=== PATIENT | male | born 1960 | race American Indian/Alaskan Native ===

== ENCOUNTER 2018-05-25 09:32 | Observation (INO) | payer MEDICAID ==
[2018-05-25] MEDS ORDERED: Sodium Chloride 0.9% 10 ML Syringe FLUSH PRN ×2 (10:52→12:13)
[2018-05-25] MEDS ORDERED: Aspirin 81 MG Tab.Chew PO ONE ×2 (10:53→14:04)
[2018-05-25] MEDS ORDERED: Nitroglycerin 0.4 MG Tab.SL SL PRN (10:54)
--- NOTE | 2018-05-25 12:17 | EDM.PDOC ---
ED HPI GENERAL MEDICAL PROBLEM - General Chief Complaint: Respiratory Problem Stated Complaint: DIFFICULTY BREATHING Time Seen by Provider: 05/25/18 12:02 Source of Information: Reports: Patient History Limitations: Reports: No Limitations - History of Present Illness INITIAL COMMENTS - FREE TEXT/NARRATIVE: 58-year-old male presents for evaluation and treatment shortness of breath. Patient is a very historian. Apparently he's had shortness of breath for the last 4 days. He states it is worse with exertion. When initially asked if he has any chest pain he responded with "I don't know ". he then admitted to having some pain throughout his entire chest. He states that he felt lightheaded but this was from anxiety attack he had on Friday. He reports he has been coughing and has had some productive sputum. No syncope. He did have a bloody nose last night. It sounds like he has a gash to his right leg which he' s had for several weeks from mowing the lawn. Open. This is causing some pain to his legs. No primary care provider. Patient has a history of PE blood clots. He is not currently on any blood thinners and has not been on any for several years. Reports it was several years ago that he had the blood clot to his lungs. Right Leg Pain Score (Numeric/FACES): 4 - Related Data Allergies Allergy/AdvReac Type Severity Reaction Status Date / Time wheat dust Allergy Other Uncoded 05/25/18 09:43 Home Meds: Home Meds Lisinopril 10 mg PO DAILY 05/25/18 [History] atorvaSTATin [Lipitor] 20 mg PO BEDTIME 05/25/18 [History] Enoxaparin [Lovenox] 120 mg SQ BID #60 syringe 05/28/18 [Rx] Folic Acid 1 mg PO DAILY #30 tablet 05/28/18 [Rx] Furosemide 20 mg PO ASDIRECTED #120 05/28/18 [Rx] Multivitamin [Multi-Day Vitamins] 1 each PO ASDIRECTED #30 tablet 05/28/18 [Rx] Spironolactone [Aldactone] 25 mg PO BID #60 tablet 05/28/18 [Rx] Thiamine [Vitamin B-1] 100 mg PO BEDTIME #30 tablet 05/28/18 [Rx] Ursodiol 300 mg PO DAILY #30 capsule 05/28/18 [Rx] predniSONE 40 mg PO WITHBREAKFAST #10 tablet 05/28/18 [Rx] Past Medical History HEENT History: Reports: Hard of Hearing, Impaired Vision Cardiovascular History: Reports: Blood Clots/VTE/DVT, High Cholesterol, Hypertension Respiratory History: Reports: SOB Genitourinary History: Reports: Chronic Renal Insuffiency, Prostate Disorder Musculoskeletal History: Reports: Arthritis Psychiatric History: Reports: Anxiety, Dementia Oncologic (Cancer) History: Reports: Prostate Dermatologic History: Reports: Cellulitis - Past Surgical History Other Respiratory Surgeries/Procedures: pulmonary emboli a couple years back on the Left. Male Surgical History: Reports: TURP-Transurethral Resection of Prostate Social & Family History - Family History Family Medical History: Noncontributory - Tobacco Use Smoking Status *Q: Never Smoker Second Hand Smoke Exposure: No - Caffeine Use Caffeine Use: Reports: Coffee - Recreational Drug Use Recreational Drug Use: Yes Drug Use in Last 12 Months: Yes Recreational Drug Type: Reports: Marijuana/Hashish Recreational Drug Use Frequency: Daily ED ROS GENERAL - Review of Systems Review Of Systems: See Below Respiratory: Reports: Shortness of Breath, Cough, Sputum Cardiovascular: Reports: Chest Pain, Lightheadedness. Denies: Syncope GI/Abdominal: Denies: Abdominal Pain, Nausea, Vomiting (x2 yesterday) Neurological: Denies: Syncope ED EXAM, GENERAL - Physical Exam Exam: See Below Exam Limited By: No Limitations General Appearance: Alert, WD/WN, No Apparent Distress, Obese Ears: Hearing Loss Nose: Normal Inspection Throat/Mouth: Normal Inspection, Normal Voice, No Airway Compromise Respiratory/Chest: No Respiratory Distress, Lungs Clear, Normal Breath Sounds Cardiovascular: Normal Peripheral Pulses, Regular Rate, Rhythm, No Murmur GI/Abdominal: Normal Bowel Sounds, Soft, Non-Tender Neurological: Alert, Confused, Slow to Respond Skin Exam: Warm, Dry, Normal Color EKG INTERPRETATION EKG Date: 05/25/18 Time: 11:00 Rhythm: Other (sinus bradcardia) Rate (Beats/Min): 57 [place]: Normal P-Wave: Present QRS: Normal ST-T: Normal QT: Normal Comparison: NA - No Prior EKG EKG Interpretation Comments: Sinus bradycardia at 57 bpm. First degree AV block, QTc moderately prolonged with a QTc of 472. Reviewed by myself and Dr. Catalan. Course - Vital Signs Last Recorded V/S: Last Vital Signs Temp 98.6 F 05/28/18 16:00 Pulse 62 05/28/18 16:00 Resp 20 05/28/18 16:00 BP 136/64 05/28/18 16:00 Pulse Ox 96 05/28/18 16:00 - Orders/Labs/Meds Labs: Laboratory Tests 05/25/18 05/25/18 05/25/18 Range/Units 12:30 12:30 12:30 WBC 4.36 (4.23-9.07) K/mm3 RBC 3.96 L (4.63-6.08) M/mm3 Hgb 13.9 (13.7-17.5) gm/L Hct 41.1 (40.1-51.0) % MCV 103.8 H (79.0-92.2) fl MCH 35.1 H (25.7-32.2) pg MCHC 33.8 (32.2-35.5) g/dl RDW Std Deviation 59.4 H (35.1-43.9) fL Plt Count 55 L (163-337) K/mm3 MPV 9.9 (9.4-12.3) fl Neutrophils % (Manual) 66 H (40-60) % Band Neutrophils % 0 (0-10) % Lymphocytes % (Manual) 31 (20-40) % Atypical Lymphs % 0 % Monocytes % (Manual) 2 (2-10) % Eosinophils % (Manual) 1 (0.8-7.0) % Basophils % (Manual) 0 L (0.2-1.2) Platelet Estimate See note Anisocytosis 1+ slight Macrocytosis 1+ slight RBC Morph Comment Not Reportable PT (9.5-12.1) SECONDS INR APTT (24-31) SECONDS D-Dimer, Quantitative 4.03 H (0.19-0.50) mg/L Sodium 134 L (136-145) mEq/L Potassium 4.0 (3.5-5.1) mEq/L Chloride 101 (98-107) mEq/L Carbon Dioxide 21 (21-32) mEq/L Anion Gap 16.0 H (5-15) BUN 6 L (7-18) mg/dL Creatinine 0.8 (0.7-1.3) mg/dL Est Cr Clr Drug Dosing 105.19 mL/min Estimated GFR (MDRD) > 60 (>60) mL/min BUN/Creatinine Ratio 7.5 L (14-18) Glucose 97 (74-106) mg/dL Calcium 8.4 L (8.5-10.1) mg/dL Magnesium (1.8-2.4) mg/dl Total Bilirubin 6.0 H (0.2-1.0) mg/dL Direct Bilirubin (0.0-0.2) mg/dl AST 97 H (15-37) U/L ALT 42 (16-63) U/L Alkaline Phosphatase 140 H (46-116) U/L Ammonia (11-32) umol/L CK-MB (CK-2) (0-3.6) ng/ml Troponin I 0.125 H* (0.00-0.056) ng/mL C-Reactive Protein 0.9 (<1.0) mg/dL NT-Pro-B Natriuret Pep (0-125) pg/mL Total Protein 7.6 (6.4-8.2) g/dl Albumin 2.8 L (3.4-5.0) g/dl Globulin 4.8 gm/dL Albumin/Globulin Ratio 0.6 L (1-2) Lipase (73-393) U/L PSA Screen (0.0-4.0) ng/mL TSH 3rd Generation (0.358-3.74) uIU/mL Ethyl Alcohol (0.00) gm% 05/25/18 05/25/18 05/25/18 Range/Units 12:30 12:30 12:30 WBC (4.23-9.07) K/mm3 RBC (4.63-6.08) M/mm3 Hgb (13.7-17.5) gm/L Hct (40.1-51.0) % MCV (79.0-92.2) fl MCH (25.7-32.2) pg MCHC (32.2-35.5) g/dl RDW Std Deviation (35.1-43.9) fL Plt Count (163-337) K/mm3 MPV (9.4-12.3) fl Neutrophils % (Manual) (40-60) % Band Neutrophils % (0-10) % Lymphocytes % (Manual) (20-40) % Atypical Lymphs % % Monocytes % (Manual) (2-10) % Eosinophils % (Manual) (0.8-7.0) % Basophils % (Manual) (0.2-1.2) Platelet Estimate Anisocytosis Macrocytosis RBC Morph Comment PT 16.0 H (9.5-12.1) SECONDS INR 1.48 APTT 34 H (24-31) SECONDS D-Dimer, Quantitative (0.19-0.50) mg/L Sodium (136-145) mEq/L Potassium (3.5-5.1) mEq/L Chloride (98-107) mEq/L Carbon Dioxide (21-32) mEq/L Anion Gap (5-15) BUN (7-18) mg/dL Creatinine (0.7-1.3) mg/dL Est Cr Clr Drug Dosing mL/min Estimated GFR (MDRD) (>60) mL/min BUN/Creatinine Ratio (14-18) Glucose (74-106) mg/dL Calcium (8.5-10.1) mg/dL Magnesium (1.8-2.4) mg/dl Total Bilirubin (0.2-1.0) mg/dL Direct Bilirubin (0.0-0.2) mg/dl AST (15-37) U/L ALT (16-63) U/L Alkaline Phosphatase (46-116) U/L Ammonia 32 (11-32) umol/L CK-MB (CK-2) 0.6 (0-3.6) ng/ml Troponin I (0.00-0.056) ng/mL C-Reactive Protein (<1.0) mg/dL NT-Pro-B Natriuret Pep (0-125) pg/mL Total Protein (6.4-8.2) g/dl Albumin (3.4-5.0) g/dl Globulin gm/dL Albumin/Globulin Ratio (1-2) Lipase (73-393) U/L PSA Screen (0.0-4.0) ng/mL TSH 3rd Generation (0.358-3.74) uIU/mL Ethyl Alcohol (0.00) gm% 05/25/18 05/25/18 05/25/18 Range/Units 12:30 12:30 14:50 WBC (4.23-9.07) K/mm3 RBC (4.63-6.08) M/mm3 Hgb (13.7-17.5) gm/L Hct (40.1-51.0) % MCV (79.0-92.2) fl MCH (25.7-32.2) pg MCHC (32.2-35.5) g/dl RDW Std Deviation (35.1-43.9) fL Plt Count (163-337) K/mm3 MPV (9.4-12.3) fl Neutrophils % (Manual) (40-60) % Band Neutrophils % (0-10) % Lymphocytes % (Manual) (20-40) % Atypical Lymphs % % Monocytes % (Manual) (2-10) % Eosinophils % (Manual) (0.8-7.0) % Basophils % (Manual) (0.2-1.2) Platelet Estimate Anisocytosis Macrocytosis RBC Morph Comment PT (9.5-12.1) SECONDS INR APTT (24-31) SECONDS D-Dimer, Quantitative (0.19-0.50) mg/L Sodium (136-145) mEq/L Potassium (3.5-5.1) mEq/L Chloride (98-107) mEq/L Carbon Dioxide (21-32) mEq/L Anion Gap (5-15) BUN (7-18) mg/dL Creatinine (0.7-1.3) mg/dL Est Cr Clr Drug Dosing mL/min Estimated GFR (MDRD) (>60) mL/min BUN/Creatinine Ratio (14-18) Glucose (74-106) mg/dL Calcium (8.5-10.1) mg/dL Magnesium (1.8-2.4) mg/dl Total Bilirubin (0.2-1.0) mg/dL Direct Bilirubin (0.0-0.2) mg/dl AST (15-37) U/L ALT (16-63) U/L Alkaline Phosphatase (46-116) U/L Ammonia (11-32) umol/L CK-MB (CK-2) (0-3.6) ng/ml Troponin I 0.118 H* (0.00-0.056) ng/mL C-Reactive Protein (<1.0) mg/dL NT-Pro-B Natriuret Pep 253 H (0-125) pg/mL Total Protein (6.4-8.2) g/dl Albumin (3.4-5.0) g/dl Globulin gm/dL Albumin/Globulin Ratio (1-2) Lipase (73-393) U/L PSA Screen (0.0-4.0) ng/mL TSH 3rd Generation (0.358-3.74) uIU/mL Ethyl Alcohol 0.00 (0.00) gm% 05/25/18 05/25/18 05/25/18 Range/Units 14:50 14:50 14:50 WBC (4.23-9.07) K/mm3 RBC (4.63-6.08) M/mm3 Hgb (13.7-17.5) gm/L Hct (40.1-51.0) % MCV (79.0-92.2) fl MCH (25.7-32.2) pg MCHC (32.2-35.5) g/dl RDW Std Deviation (35.1-43.9) fL Plt Count (163-337) K/mm3 MPV (9.4-12.3) fl Neutrophils % (Manual) (40-60) % Band Neutrophils % (0-10) % Lymphocytes % (Manual) (20-40) % Atypical Lymphs % % Monocytes % (Manual) (2-10) % Eosinophils % (Manual) (0.8-7.0) % Basophils % (Manual) (0.2-1.2) Platelet Estimate Anisocytosis Macrocytosis RBC Morph Comment PT (9.5-12.1) SECONDS INR APTT (24-31) SECONDS D-Dimer, Quantitative (0.19-0.50) mg/L Sodium (136-145) mEq/L Potassium (3.5-5.1) mEq/L Chloride (98-107) mEq/L Carbon Dioxide (21-32) mEq/L Anion Gap (5-15) BUN (7-18) mg/dL Creatinine (0.7-1.3) mg/dL Est Cr Clr Drug Dosing mL/min Estimated GFR (MDRD) (>60) mL/min BUN/Creatinine Ratio (14-18) Glucose (74-106) mg/dL Calcium (8.5-10.1) mg/dL Magnesium 2.0 (1.8-2.4) mg/dl Total Bilirubin (0.2-1.0) mg/dL Direct Bilirubin 2.10 H (0.0-0.2) mg/dl AST (15-37) U/L ALT (16-63) U/L Alkaline Phosphatase (46-116) U/L Ammonia (11-32) umol/L CK-MB (CK-2) (0-3.6) ng/ml Troponin I (0.00-0.056) ng/mL C-Reactive Protein (<1.0) mg/dL NT-Pro-B Natriuret Pep (0-125) pg/mL Total Protein (6.4-8.2) g/dl Albumin (3.4-5.0) g/dl Globulin gm/dL Albumin/Globulin Ratio (1-2) Lipase 243 (73-393) U/L PSA Screen (0.0-4.0) ng/mL TSH 3rd Generation 1.425 (0.358-3.74) uIU/mL Ethyl Alcohol (0.00) gm% 05/25/18 Range/Units 14:56 WBC (4.23-9.07) K/mm3 RBC (4.63-6.08) M/mm3 Hgb (13.7-17.5) gm/L Hct (40.1-51.0) % MCV (79.0-92.2) fl MCH (25.7-32.2) pg MCHC (32.2-35.5) g/dl RDW Std Deviation (35.1-43.9) fL Plt Count (163-337) K/mm3 MPV (9.4-12.3) fl Neutrophils % (Manual) (40-60) % Band Neutrophils % (0-10) % Lymphocytes % (Manual) (20-40) % Atypical Lymphs % % Monocytes % (Manual) (2-10) % Eosinophils % (Manual) (0.8-7.0) % Basophils % (Manual) (0.2-1.2) Platelet Estimate Anisocytosis Macrocytosis RBC Morph Comment PT (9.5-12.1) SECONDS INR APTT (24-31) SECONDS D-Dimer, Quantitative (0.19-0.50) mg/L Sodium (136-145) mEq/L Potassium (3.5-5.1) mEq/L Chloride (98-107) mEq/L Carbon Dioxide (21-32) mEq/L Anion Gap (5-15) BUN (7-18) mg/dL Creatinine (0.7-1.3) mg/dL Est Cr Clr Drug Dosing mL/min Estimated GFR (MDRD) (>60) mL/min BUN/Creatinine Ratio (14-18) Glucose (74-106) mg/dL Calcium (8.5-10.1) mg/dL Magnesium (1.8-2.4) mg/dl Total Bilirubin (0.2-1.0) mg/dL Direct Bilirubin (0.0-0.2) mg/dl AST (15-37) U/L ALT (16-63) U/L Alkaline Phosphatase (46-116) U/L Ammonia (11-32) umol/L CK-MB (CK-2) (0-3.6) ng/ml Troponin I (0.00-0.056) ng/mL C-Reactive Protein (<1.0) mg/dL NT-Pro-B Natriuret Pep (0-125) pg/mL Total Protein (6.4-8.2) g/dl Albumin (3.4-5.0) g/dl Globulin gm/dL Albumin/Globulin Ratio (1-2) Lipase (73-393) U/L PSA Screen < 0.1 (0.0-4.0) ng/mL TSH 3rd Generation (0.358-3.74) uIU/mL Ethyl Alcohol (0.00) gm% Meds: Medications Discontinued Medications Generic Name Dose Route Start Last Admin Trade Name Bolaq PRN Reason Stop Dose Admin Acetaminophen 650 mg 05/25/18 20:13 Tylenol PO Q4H PRN Pain (Mild 1-3)/fever Apixaban 2.5 mg 05/26/18 21:00 05/28/18 09:12 Eliquis PO 2.5 mg BID MARK Administration Aspirin 324 mg 05/25/18 10:53 05/25/18 12:34 Aspirin PO 05/25/18 10:54 Not Given ONETIME ONE Aspirin 324 mg 05/25/18 14:04 05/25/18 14:50 Aspirin PO 05/25/18 14:05 324 mg ONETIME ONE Administration Diphenhydramine HCl 50 mg 05/25/18 15:58 05/25/18 16:43 Benadryl IVPUSH 05/25/18 15:59 Not Given ONETIME ONE Enoxaparin Sodium 120 mg 05/25/18 20:34 05/25/18 21:42 Lovenox SUBCUT 05/25/18 20:35 Not Given ONETIME ONE Folic Acid 1 mg 05/26/18 09:00 05/28/18 09:13 Folic Acid PO 1 mg DAILY MARK Administration Furosemide 20 mg 05/26/18 09:00 05/26/18 10:15 Lasix PO 20 mg DAILY MARK Administration Furosemide 40 mg 05/27/18 09:00 05/28/18 09:13 Lasix PO 40 mg DAILY MARK Administration Haloperidol Lactate 5 mg 05/25/18 15:58 05/25/18 16:43 Haldol IM 05/25/18 15:59 Not Given ONETIME ONE Hydralazine HCl 20 mg 05/26/18 12:27 Apresoline IVPUSH Q4H PRN Hypertension Hydromorphone HCl 0.5 mg 05/25/18 15:58 05/25/18 16:43 Dilaudid IVPUSH 05/25/18 15:59 Not Given ONETIME ONE Sodium Chloride 100 mls @ 60 mls/hr 05/25/18 13:45 05/25/18 13:54 Normal Saline IV 60 mls/hr ASDIRECTED MARK Administration Sodium Chloride 1,000 mls @ 100 mls/hr 05/25/18 14:15 Normal Saline IV ASDIRECTED MARK Sodium Chloride 1,000 mls @ 125 mls/hr 05/25/18 20:45 05/27/18 12:16 Normal Saline IV 125 mls/hr ASDIRECTED MARK Administration Iopamidol 100 ml 05/25/18 13:39 05/25/18 13:53 Isovue-370 (76%) IVPUSH 05/25/18 13:40 100 ml ONETIME ONE Administration Iopamidol 100 ml 05/25/18 13:42 05/25/18 15:27 Isovue-370 (76%) IVPUSH 05/25/18 13:43 Not Given ONETIME ONE Iopamidol 125 ml 05/25/18 17:12 05/25/18 17:26 Isovue-300 (61%) IVPUSH 05/25/18 17:13 150 ml ONETIME ONE Administration Lisinopril 10 mg 05/25/18 21:30 05/28/18 09:14 Prinivil PO 10 mg DAILY MARK Administration Lorazepam 2 mg 05/26/18 12:27 Ativan IVPUSH Q4H PRN Seizures Magnesium Sulfate 1 dose 05/26/18 12:30 Pharmacy To Dose - Magnesium Replacement .XX ASDIRECTED MARK Metoprolol Tartrate 5 mg 05/26/18 12:27 Lopressor IVPUSH Q4H PRN Tachycardia Morphine Sulfate 2 mg 05/25/18 20:13 05/26/18 04:00 Morphine IVPUSH 05/26/18 20:16 2 mg Q2H PRN Administration Pain (severe 7-10) Multivitamins 1 each 05/26/18 21:00 05/27/18 20:17 Thera PO 1 each BEDTIME MARK Administration Atorvastatin 20 Mg 20 mg 05/25/18 21:45 05/27/18 20:18 TabOwn Med PO 20 mg BEDTIME MARK Administration Ondansetron HCl 4 mg 05/26/18 04:13 Zofran IVPUSH Q4H PRN Nausea/Vomiting Ursodiol 250 Mg Tab 0 each 05/26/18 21:00 05/26/18 20:36 PO 1 each BEDTIME MARK Administration Phytonadione 10 mg 05/26/18 19:00 05/28/18 09:25 Aquamephyton SUBCUT 05/28/18 09:01 10 mg DAILY MARK Administration Potassium Chloride 1 dose 05/26/18 12:30 Pharmacy To Dose - Potassium Replacement .XX ASDIRECTED MARK Prednisone 40 mg 05/27/18 07:00 05/28/18 06:33 Prednisone PO 40 mg WITHBREAKFAST MARK Administration Regadenoson 0.4 mg 05/26/18 06:49 05/26/18 07:49 Lexiscan IVPUSH 05/26/18 06:50 0.4 mg ONETIME ONE Administration Sodium Chloride 10 ml 05/25/18 12:13 05/25/18 12:34 Saline Flush FLUSH 10 ml ASDIRECTED PRN Administration Keep Vein Open Sodium Chloride 10 ml 05/25/18 13:39 05/25/18 13:54 Saline Flush FLUSH 09/10/18 13:40 10 ml ONETIME ONE Administration Spironolactone 25 mg 05/26/18 21:00 05/28/18 09:11 Aldactone PO 25 mg BID MARK Administration Thiamine HCl 100 mg 05/26/18 21:00 05/27/18 20:17 Vitamin B-1 PO 100 mg BEDTIME MARK Administration Ursodiol 250 mg 05/27/18 12:00 05/28/18 09:15 Candelaria 250 PO 250 mg BID MARK Administration - Radiology Interpretation Free Text/Narrative:: Chest: Two views of the chest were obtained. Comparison: No previous chest x-ray. Slight pleural thickening is seen within the right lateral costophrenic angle which is likely chronic. Embolization coils are seen within the left upper abdomen. Heart size is normal. Tortuous thoracic aorta is seen. No acute parenchymal change is seen. Bony structures appear within normal limits for the patient's age. Slight scoliosis is incidentally noted. Impression: 1. Incidental findings. Nothing acute is appreciated. CT chest Technique: Multiple axial sections were obtained through the chest. Intravenous contrast was utilized. Study performed as a pulmonary angiogram protocol. Pulmonary arteries are not optimally opacified as a pulmonary angiogram study. Findings: No filling defects seen within the main or segmental branches. Smaller subsegmental pulmonary emboli could easily be missed. Extensive coronary artery calcification is seen. No pericardial thickening is seen. Fatty infiltration noted within the liver. 6.5 cm cyst is noted within the left kidney. Multiple metallic density seen within the upper abdomen. Mediastinum and hilar regions show no adenopathy. No axillary adenopathy is seen. Lungs are clear without acute parenchymal change. No pleural effusions are seen. Bone window settings show no acute osseous abnormality. Impression: 1. Less than optimal opacification of pulmonary arteries. No filling defects are seen within the main or segmental branches. Smaller subsegmental pulmonary emboli could be missed. 2. Other incidental findings as noted above. Nothing acute is seen on CT study of the chest. CT abdomen and pelvis Technique: Multiple axial sections were obtained from above the dome of the diaphragm inferiorly through the pubic symphysis. Intravenous contrast was utilized. Oral contrast has been given. Findings: Liver is irregular in its contrast appearance as well as being slightly nodular having a cirrhotic appearance. Spleen appears within normal limits. Embolization type metallic densities are seen within the spleen and next to the spleen. Several metallic densities are seen within portion of the right lobe of the liver and next to the liver. Vague low density area is seen next to the gallbladder presumably due to slight focal fatty sparing. Adrenal glands show no nodule. Pancreas is normal. Gallbladder contains no calcified gallstones. Cyst noted within the left kidney. Kidneys show symmetric contrast enhancement. Delayed images shows contrast within the distal ureter and within the bladder. Bladder appears thick walled but is not well distended. Aorta shows atherosclerotic calcification which continues into the iliac vessels. No aneurysm is seen. No retroperitoneal adenopathy is seen. Small amount of fluid is seen off the inferior liver with some hazy mesenteric densities being seen which most likely are chronic. Small amount of fluid is also seen within the pelvis. Right sided abdominal hernia is noted. No bowel incarceration is seen within this hernia. Degenerative change is noted within the spine. Impression: 1. Findings of cirrhosis within the liver. Probable focal fatty sparing next to the gallbladder. 2. Small amount of ascites. 3. Right abdominal wall hernia with no findings of bowel incarceration. 4. Other incidental findings as noted above. - Re-Assessments/Exams Free Text/Narrative Re-Assessment/Exam: 05/25/18 19:02 I reviewed the labs, imaging and ekg with the patient. Reports his shortness of breath has improved without intervention. I have several concerns. He is a very poor historian and seems to have multiple chronic medical conditions of which he knows very little. Of concern is his elevated d dimer, elevated trop and elevated bilirubin. He reports a cardiac history and problems with his liver but can not elaborate much more. Reports a history of alcohol abuse, does not know or will not share how much alcohol he consumes. I am recommending admission. Patient is open to admission for additional testing including possibly a stress test, echo and ultrasounds of his legs and liver. I have discussed the case with Dr. Granado. Recommended CT of the abdomen for further evaluation of the elevated bili. Accepts for observation admission for elevated d dimer, elevated trop, elevated bilirubin, h/o etoh abuse and shortness of breath. Departure - Departure Time of Disposition: 19:00 Disposition: Refer to Observation Condition: Fair Clinical Impression: Elevated bilirubin, Elevated d-dimer, Elevated troponin, SOB (shortness of breath), Thrombocytopenia Laceration of right lower leg Qualifiers: Encounter type: subsequent encounter Qualified Code(s): S81.811D - Laceration without foreign body, right lower leg, subsequent encounter - Discharge Information *PRESCRIPTION DRUG MONITORING PROGRAM REVIEWED*: No *COPY OF PRESCRIPTION DRUG MONITORING REPORT IN PATIENT ELODIA: No
--- NOTE | 2018-05-25 12:55 | CR ---
Chest: Two views of the chest were obtained. Comparison: No previous chest x-ray. Slight pleural thickening is seen within the right lateral costophrenic angle which is likely chronic. Embolization coils are seen within the left upper abdomen. Heart size is normal. Tortuous thoracic aorta is seen. No acute parenchymal change is seen. Bony structures appear within normal limits for the patient's age. Slight scoliosis is incidentally noted. Impression: 1. Incidental findings. Nothing acute is appreciated. Diagnostic code #2
[2018-05-25] MEDS ORDERED: Iopamidol 755 Mg/ML 100 ML Bottle IVPUSH ONE ×2 (13:39→13:42)
[2018-05-25] MEDS ORDERED: Sodium Chloride 0.9% 10 ML Syringe FLUSH ONE (13:39)
[2018-05-25] MEDS ORDERED: Sodium Chloride 0.9% 100 ML IV SCH (13:45)
[2018-05-25] MEDS ORDERED: Sodium Chloride 0.9% 1,000 ML IV SCH (14:15)
--- NOTE | 2018-05-25 14:34 | CT ---
CT chest Technique: Multiple axial sections were obtained through the chest. Intravenous contrast was utilized. Study performed as a pulmonary angiogram protocol. Pulmonary arteries are not optimally opacified as a pulmonary angiogram study. Findings: No filling defects seen within the main or segmental branches. Smaller subsegmental pulmonary emboli could easily be missed. Extensive coronary artery calcification is seen. No pericardial thickening is seen. Fatty infiltration noted within the liver. 6.5 cm cyst is noted within the left kidney. Multiple metallic density seen within the upper abdomen. Mediastinum and hilar regions show no adenopathy. No axillary adenopathy is seen. Lungs are clear without acute parenchymal change. No pleural effusions are seen. Bone window settings show no acute osseous abnormality. Impression: 1. Less than optimal opacification of pulmonary arteries. No filling defects are seen within the main or segmental branches. Smaller subsegmental pulmonary emboli could be missed. 2. Other incidental findings as noted above. Nothing acute is seen on CT study of the chest. Diagnostic code #2
[2018-05-25] MEDS ORDERED: diphenhydrAMINE 50 MG/ML SDV IVPUSH ONE (15:58)
[2018-05-25] MEDS ORDERED: Haloperidol Lactate 5 MG/ML SDV IM ONE (15:58)
[2018-05-25] MEDS ORDERED: HYDROmorphone 0.5 MG/0.5 ML SYRINGE IVPUSH ONE (15:58)
[2018-05-25] MEDS ORDERED: Iopamidol 612 MG/ML 150 ML Bottle IVPUSH ONE (17:12)
--- NOTE | 2018-05-25 17:49 | CT ---
CT abdomen and pelvis Technique: Multiple axial sections were obtained from above the dome of the diaphragm inferiorly through the pubic symphysis. Intravenous contrast was utilized. Oral contrast has been given. Findings: Liver is irregular in its contrast appearance as well as being slightly nodular having a cirrhotic appearance. Spleen appears within normal limits. Embolization type metallic densities are seen within the spleen and next to the spleen. Several metallic densities are seen within portion of the right lobe of the liver and next to the liver. Vague low density area is seen next to the gallbladder presumably due to slight focal fatty sparing. Adrenal glands show no nodule. Pancreas is normal. Gallbladder contains no calcified gallstones. Cyst noted within the left kidney. Kidneys show symmetric contrast enhancement. Delayed images shows contrast within the distal ureter and within the bladder. Bladder appears thick walled but is not well distended. Aorta shows atherosclerotic calcification which continues into the iliac vessels. No aneurysm is seen. No retroperitoneal adenopathy is seen. Small amount of fluid is seen off the inferior liver with some hazy mesenteric densities being seen which most likely are chronic. Small amount of fluid is also seen within the pelvis. Right sided abdominal hernia is noted. No bowel incarceration is seen within this hernia. Degenerative change is noted within the spine. Impression: 1. Findings of cirrhosis within the liver. Probable focal fatty sparing next to the gallbladder. 2. Small amount of ascites. 3. Right abdominal wall hernia with no findings of bowel incarceration. 4. Other incidental findings as noted above. Diagnostic code #3
[2018-05-25] MEDS ORDERED: Acetaminophen 325 MG Tab PO PRN (20:13)
[2018-05-25] MEDS ORDERED: Morphine 2 MG/ML Syringe IVPUSH PRN (20:13)
[2018-05-25] MEDS ORDERED: Enoxaparin 120 MG/0.8 ML Syringe SUBCUT ONE (20:34)
--- NOTE | 2018-05-25 20:52 | PCM.HP ---
H&P History of Present Illness - General Date of Service: 05/25/18 Admit Problem/Dx: Admission Diagnosis/Problem Admission Diagnosis/Problem Chest pain Source of Information: Patient, Provider History Limitations: Reports: Altered Mental Status (Poor historian; Questionable baseline) - History of Present Illness Initial Comments - Free Text/Narative: HPI: This is a 58 yo male with past medical hx/o HTN, HLD, CHF, h/o prostate CA who comes in for possible hepatic encephalopathy, SOB, elevated troponin, elevated D -dimer and elevated bilirubin. He is not a good historian and it is difficult to obtain history. He states he did have some "heartburn" yesterday and had difficulty sleeping last night due to SOB and cough. He denies any fever, chills , headache, nausea, vomiting, diarrhea, or GI/ complaints. His initial workup in the ED showed a CBC remarkable for RBC 3.96, MCV 103.8, MCH 35.1, RDW 59.4, Plt 55, Neut 66%. His coagulation study shows PT 16, INR 1.48, APTT 34, D-Dimer elevated at 4.03. His chemistry is remarkable for Na 134 , Anion Gap 16, BUN 6, Ca 8.4, Total Bilirubin 6, Direct Bilirubin 2.10, AST 97 , Alk Phos 140, BNP 253, Albumin 2.8. EtOH 0. Chest X-ray shows nothing acute. CT angiogram shows nothing acute. Troponin elevated at 0.125 and 0.118. CKMB negative. EKG unremarkable. Abdominal CT shows liver cirrhosis, small amt of ascites and right abdominal wall hernia. He is subsequently admitted to the medical floor for observation. He is a full code. His PCP is unknown as he states "I see everyone" at [facility] in [place]. Right Leg Pain Score (Numeric/FACES): 4 - Related Data Allergies/Adverse Reactions: Allergies Allergy/AdvReac Type Severity Reaction Status Date / Time wheat dust Allergy Other Uncoded 05/25/18 09:43 Home Medications: Home Meds Folic Acid 1 mg PO DAILY 05/25/18 [History] Furosemide 20 mg PO DAILY 05/25/18 [History] Lisinopril 10 mg PO DAILY 05/25/18 [History] atorvaSTATin [Lipitor] 20 mg PO BEDTIME 05/25/18 [History] Past Medical History HEENT History: Reports: Hard of Hearing, Impaired Vision Other HEENT History: especially at night, poor dentition Cardiovascular History: Reports: Blood Clots/VTE/DVT, High Cholesterol, Hypertension Respiratory History: Reports: PE, SOB Gastrointestinal History: Reports: Hemorrhoids Genitourinary History: Reports: Chronic Renal Insuffiency, Prostate Disorder Musculoskeletal History: Reports: Arthritis Neurological History: Reports: None Psychiatric History: Reports: Anxiety, Dementia Endocrine/Metabolic History: Reports: None Immunologic History: Reports: None Oncologic (Cancer) History: Reports: Prostate Dermatologic History: Reports: Cellulitis - Infectious Disease History Infectious Disease History: Reports: None - Past Surgical History HEENT Surgical History: Reports: None Cardiovascular Surgical History: Reports: None Respiratory Surgical History: Reports: Other (See Below) Other Respiratory Surgeries/Procedures: "removal of blood clot in lung"; pulmonary emboli a couple years back on the Left. GI Surgical History: Reports: Colonoscopy Male Surgical History: Reports: TURP-Transurethral Resection of Prostate Other Male Surgeries/Procedures: bladder retention, patient reports blood in urine about a month ago and history of catheter placement with irrigation. Neurological Surgical History: Reports: None Musculoskeletal Surgical History: Reports: Arthroscopic Procedure Other Musculoskeletal Surgeries/Procedures:: Right knee Social & Family History - Family History Family Medical History: Noncontributory - Tobacco Use Smoking Status *Q: Never Smoker Years of Tobacco use: 1 Packs/Tins Daily: 0.2 Used Tobacco, but Quit: Yes Month/Year Tobacco Last Used: 40 Tobacco Use Comment: today Second Hand Smoke Exposure: No - Caffeine Use Caffeine Use: Reports: Coffee - Alcohol Use Days Per Week of Alcohol Use: 2 Number of Drinks Per Day: 3 Total Drinks Per Week: 6 Date of Last Drink: 04/28/18 - Recreational Drug Use Recreational Drug Use: Yes Drug Use in Last 12 Months: Yes Recreational Drug Type: Reports: Marijuana/Hashish Recreational Drug Use Frequency: Daily H&P Review of Systems - Review of Systems: Review Of Systems: See Below General: Reports: No Symptoms. Denies: Fever, Chills HEENT: Reports: No Symptoms Pulmonary: Reports: Shortness of Breath (with exertion), Wheezing (when supine) , Cough. Denies: Pleuritic Chest Pain, Sputum Cardiovascular: Reports: Orthopnea, Edema, Blood Pressure Problem, Other ( heartburn). Denies: Chest Pain Gastrointestinal: Reports: Distension. Denies: Abdominal Pain, Bloody Stool, Diarrhea, Nausea, Vomiting Genitourinary: Reports: No Symptoms Musculoskeletal: Reports: Leg Pain (has old laceration to right leg), Joint Pain ("twisted right knee"). Denies: Joint Swelling Skin: Reports: Wound (laceration to right calf, about 3"- 4") Psychiatric: Reports: Confusion (has a difficult time answering/understanding questions) Neurological: Reports: Confusion (has a difficult time answering/understanding questions) Hematologic/Lymphatic: Reports: No Symptoms Immunologic: Reports: No Symptoms Exam - Exam Exam: See Below - Vital Signs Vital Signs: Last Vital Signs Temp 98.8 F 05/25/18 09:47 Pulse 61 05/25/18 09:47 Resp 22 H 05/25/18 09:47 BP 138/75 05/25/18 09:47 Pulse Ox 99 05/25/18 09:47 Weight: 276 lb - Exam Quality Assessment: DVT Prophylaxis. No: Supplemental Oxygen General: Alert, Oriented (seems confused/slow when trying to answer questions), Cooperative, Mild Distress HEENT: PERRLA, Hearing Intact, Mucosa Moist & [place], Nares Patent, Normal Nasal Septum, Posterior Pharynx Clear, Conjunctiva Clear, EOMI, EACs Clear, TMs Clear Neck: Supple, Trachea Midline, 2 Lungs: Clear to Auscultation, Normal Respiratory Effort Cardiovascular: Regular Rate, Regular Rhythm GI/Abdominal Exam: Normal Bowel Sounds, Soft, Non-Tender, No Organomegaly, No Mass, Pelvis Stable, Distended (hyper-ressonate to percussion). No: Rebound (Male) Exam: Deferred Rectal (Males) Exam: Deferred Back Exam: Normal Inspection, Full Range of Motion, NT Extremities: Normal Range of Motion, Non-Tender, Normal Capillary Refill, Pedal Edema (R side 2+ pitting), Leg Pain (TTP near laceration), Increased Warmth ( Right leg near laceration). No: Gage's Sign Peripheral Pulses: 2+: Posterior Tibial (R), Dorsalis Pedis (R), 3+: Posterior Tibial (L), Dorsalis Pedis (L) Skin: Warm, Dry, Wound (3-4" laceration on the posterior right lower extremity) Neurological: Cranial Nerves Intact (grossly) Neuro Extensive - Mental Status: Alert, Oriented x3, Normal Mood/Affect. No: Normal Cognition (seems confused and has a hard time answering questions) - Patient Data Lab Results Last 24 hrs: Laboratory Results - last 24 hr 05/25/18 05/25/18 05/25/18 Range/Units 12:30 12:30 12:30 WBC 4.36 (4.23-9.07) K/mm3 RBC 3.96 L (4.63-6.08) M/mm3 Hgb 13.9 (13.7-17.5) gm/L Hct 41.1 (40.1-51.0) % MCV 103.8 H (79.0-92.2) fl MCH 35.1 H (25.7-32.2) pg MCHC 33.8 (32.2-35.5) g/dl RDW Std Deviation 59.4 H (35.1-43.9) fL Plt Count 55 L (163-337) K/mm3 MPV 9.9 (9.4-12.3) fl Neutrophils % (Manual) 66 H (40-60) % Band Neutrophils % 0 (0-10) % Lymphocytes % (Manual) 31 (20-40) % Atypical Lymphs % 0 % Monocytes % (Manual) 2 (2-10) % Eosinophils % (Manual) 1 (0.8-7.0) % Basophils % (Manual) 0 L (0.2-1.2) Platelet Estimate See note Anisocytosis 1+ slight Macrocytosis 1+ slight RBC Morph Comment Not Reportable PT (9.5-12.1) SECONDS INR APTT (24-31) SECONDS D-Dimer, Quantitative 4.03 H (0.19-0.50) mg/L Sodium 134 L (136-145) mEq/L Potassium 4.0 (3.5-5.1) mEq/L Chloride 101 (98-107) mEq/L Carbon Dioxide 21 (21-32) mEq/L Anion Gap 16.0 H (5-15) BUN 6 L (7-18) mg/dL Creatinine 0.8 (0.7-1.3) mg/dL Est Cr Clr Drug Dosing 105.19 mL/min Estimated GFR (MDRD) > 60 (>60) mL/min BUN/Creatinine Ratio 7.5 L (14-18) Glucose 97 (74-106) mg/dL Calcium 8.4 L (8.5-10.1) mg/dL Magnesium (1.8-2.4) mg/dl Total Bilirubin 6.0 H (0.2-1.0) mg/dL Direct Bilirubin (0.0-0.2) mg/dl AST 97 H (15-37) U/L ALT 42 (16-63) U/L Alkaline Phosphatase 140 H (46-116) U/L Ammonia (11-32) umol/L CK-MB (CK-2) (0-3.6) ng/ml Troponin I 0.125 H* (0.00-0.056) ng/mL C-Reactive Protein 0.9 (<1.0) mg/dL NT-Pro-B Natriuret Pep (0-125) pg/mL Total Protein 7.6 (6.4-8.2) g/dl Albumin 2.8 L (3.4-5.0) g/dl Globulin 4.8 gm/dL Albumin/Globulin Ratio 0.6 L (1-2) Lipase (73-393) U/L TSH 3rd Generation (0.358-3.74) uIU/mL Ethyl Alcohol (0.00) gm% 05/25/18 05/25/18 05/25/18 Range/Units 12:30 12:30 12:30 WBC (4.23-9.07) K/mm3 RBC (4.63-6.08) M/mm3 Hgb (13.7-17.5) gm/L Hct (40.1-51.0) % MCV (79.0-92.2) fl MCH (25.7-32.2) pg MCHC (32.2-35.5) g/dl RDW Std Deviation (35.1-43.9) fL Plt Count (163-337) K/mm3 MPV (9.4-12.3) fl Neutrophils % (Manual) (40-60) % Band Neutrophils % (0-10) % Lymphocytes % (Manual) (20-40) % Atypical Lymphs % % Monocytes % (Manual) (2-10) % Eosinophils % (Manual) (0.8-7.0) % Basophils % (Manual) (0.2-1.2) Platelet Estimate Anisocytosis Macrocytosis RBC Morph Comment PT 16.0 H (9.5-12.1) SECONDS INR 1.48 APTT 34 H (24-31) SECONDS D-Dimer, Quantitative (0.19-0.50) mg/L Sodium (136-145) mEq/L Potassium (3.5-5.1) mEq/L Chloride (98-107) mEq/L Carbon Dioxide (21-32) mEq/L Anion Gap (5-15) BUN (7-18) mg/dL Creatinine (0.7-1.3) mg/dL Est Cr Clr Drug Dosing mL/min Estimated GFR (MDRD) (>60) mL/min BUN/Creatinine Ratio (14-18) Glucose (74-106) mg/dL Calcium (8.5-10.1) mg/dL Magnesium (1.8-2.4) mg/dl Total Bilirubin (0.2-1.0) mg/dL Direct Bilirubin (0.0-0.2) mg/dl AST (15-37) U/L ALT (16-63) U/L Alkaline Phosphatase (46-116) U/L Ammonia 32 (11-32) umol/L CK-MB (CK-2) 0.6 (0-3.6) ng/ml Troponin I (0.00-0.056) ng/mL C-Reactive Protein (<1.0) mg/dL NT-Pro-B Natriuret Pep (0-125) pg/mL Total Protein (6.4-8.2) g/dl Albumin (3.4-5.0) g/dl Globulin gm/dL Albumin/Globulin Ratio (1-2) Lipase (73-393) U/L TSH 3rd Generation (0.358-3.74) uIU/mL Ethyl Alcohol (0.00) gm% 05/25/18 05/25/18 05/25/18 Range/Units 12:30 12:30 14:50 WBC (4.23-9.07) K/mm3 RBC (4.63-6.08) M/mm3 Hgb (13.7-17.5) gm/L Hct (40.1-51.0) % MCV (79.0-92.2) fl MCH (25.7-32.2) pg MCHC (32.2-35.5) g/dl RDW Std Deviation (35.1-43.9) fL Plt Count (163-337) K/mm3 MPV (9.4-12.3) fl Neutrophils % (Manual) (40-60) % Band Neutrophils % (0-10) % Lymphocytes % (Manual) (20-40) % Atypical Lymphs % % Monocytes % (Manual) (2-10) % Eosinophils % (Manual) (0.8-7.0) % Basophils % (Manual) (0.2-1.2) Platelet Estimate Anisocytosis Macrocytosis RBC Morph Comment PT (9.5-12.1) SECONDS INR APTT (24-31) SECONDS D-Dimer, Quantitative (0.19-0.50) mg/L Sodium (136-145) mEq/L Potassium (3.5-5.1) mEq/L Chloride (98-107) mEq/L Carbon Dioxide (21-32) mEq/L Anion Gap (5-15) BUN (7-18) mg/dL Creatinine (0.7-1.3) mg/dL Est Cr Clr Drug Dosing mL/min Estimated GFR (MDRD) (>60) mL/min BUN/Creatinine Ratio (14-18) Glucose (74-106) mg/dL Calcium (8.5-10.1) mg/dL Magnesium (1.8-2.4) mg/dl Total Bilirubin (0.2-1.0) mg/dL Direct Bilirubin (0.0-0.2) mg/dl AST (15-37) U/L ALT (16-63) U/L Alkaline Phosphatase (46-116) U/L Ammonia (11-32) umol/L CK-MB (CK-2) (0-3.6) ng/ml Troponin I 0.118 H* (0.00-0.056) ng/mL C-Reactive Protein (<1.0) mg/dL NT-Pro-B Natriuret Pep 253 H (0-125) pg/mL Total Protein (6.4-8.2) g/dl Albumin (3.4-5.0) g/dl Globulin gm/dL Albumin/Globulin Ratio (1-2) Lipase (73-393) U/L TSH 3rd Generation (0.358-3.74) uIU/mL Ethyl Alcohol 0.00 (0.00) gm% 05/25/18 05/25/18 05/25/18 Range/Units 14:50 14:50 14:50 WBC (4.23-9.07) K/mm3 RBC (4.63-6.08) M/mm3 Hgb (13.7-17.5) gm/L Hct (40.1-51.0) % MCV (79.0-92.2) fl MCH (25.7-32.2) pg MCHC (32.2-35.5) g/dl RDW Std Deviation (35.1-43.9) fL Plt Count (163-337) K/mm3 MPV (9.4-12.3) fl Neutrophils % (Manual) (40-60) % Band Neutrophils % (0-10) % Lymphocytes % (Manual) (20-40) % Atypical Lymphs % % Monocytes % (Manual) (2-10) % Eosinophils % (Manual) (0.8-7.0) % Basophils % (Manual) (0.2-1.2) Platelet Estimate Anisocytosis Macrocytosis RBC Morph Comment PT (9.5-12.1) SECONDS INR APTT (24-31) SECONDS D-Dimer, Quantitative (0.19-0.50) mg/L Sodium (136-145) mEq/L Potassium (3.5-5.1) mEq/L Chloride (98-107) mEq/L Carbon Dioxide (21-32) mEq/L Anion Gap (5-15) BUN (7-18) mg/dL Creatinine (0.7-1.3) mg/dL Est Cr Clr Drug Dosing mL/min Estimated GFR (MDRD) (>60) mL/min BUN/Creatinine Ratio (14-18) Glucose (74-106) mg/dL Calcium (8.5-10.1) mg/dL Magnesium 2.0 (1.8-2.4) mg/dl Total Bilirubin (0.2-1.0) mg/dL Direct Bilirubin 2.10 H (0.0-0.2) mg/dl AST (15-37) U/L ALT (16-63) U/L Alkaline Phosphatase (46-116) U/L Ammonia (11-32) umol/L CK-MB (CK-2) (0-3.6) ng/ml Troponin I (0.00-0.056) ng/mL C-Reactive Protein (<1.0) mg/dL NT-Pro-B Natriuret Pep (0-125) pg/mL Total Protein (6.4-8.2) g/dl Albumin (3.4-5.0) g/dl Globulin gm/dL Albumin/Globulin Ratio (1-2) Lipase 243 (73-393) U/L TSH 3rd Generation 1.425 (0.358-3.74) uIU/mL Ethyl Alcohol (0.00) gm% Result Diagrams: 05/25/18 12:30 05/25/18 12:30 - Problem List (1) HTN (hypertension) SNOMED Code(s): 90147220 ICD Code: I10 - ESSENTIAL (PRIMARY) HYPERTENSION Status: Chronic Priority : Medium Current Visit: Yes Qualifiers: Hypertension type: unspecified Qualified Code(s): I10 - Essential (primary ) hypertension (2) HLD (hyperlipidemia) SNOMED Code(s): 59563514 ICD Code: E78.5 - HYPERLIPIDEMIA, UNSPECIFIED Status: Chronic Priority: Medium Current Visit: Yes Qualifiers: Hyperlipidemia type: unspecified Qualified Code(s): E78.5 - Hyperlipidemia , unspecified (3) CHF (congestive heart failure) SNOMED Code(s): 98024540 ICD Code: I50.9 - HEART FAILURE, UNSPECIFIED Status: Chronic Priority: Medium Current Visit: Yes Qualifiers: Heart failure type: unspecified Heart failure chronicity: unspecified Qualified Code(s): I50.9 - Heart failure, unspecified (4) Thrombocytopenia SNOMED Code(s): 972132934 ICD Code: D69.6 - THROMBOCYTOPENIA, UNSPECIFIED Status: Acute Priority: Medium Current Visit: Yes (5) SOB (shortness of breath) SNOMED Code(s): 307601355 ICD Code: R06.02 - SHORTNESS OF BREATH Status: Acute Priority: High Current Visit: Yes (6) Elevated troponin SNOMED Code(s): 850676119, 466283061, 431825845 ICD Code: R74.8 - ABNORMAL LEVELS OF OTHER SERUM ENZYMES Status: Acute Priority: High Current Visit: Yes (7) Elevated d-dimer SNOMED Code(s): 478252473 ICD Code: R79.89 - OTHER SPECIFIED ABNORMAL FINDINGS OF BLOOD CHEMISTRY Status: Acute Priority: High Current Visit: Yes (8) Elevated bilirubin SNOMED Code(s): 359647958 ICD Code: R17 - UNSPECIFIED JAUNDICE Status: Acute Priority: High Current Visit: Yes (9) Laceration of right lower leg SNOMED Code(s): 360732541 ICD Code: S81.811A - LACERATION W/O FOREIGN BODY, RIGHT LOWER LEG, INIT ENCNTR Status: Acute Priority: Medium Current Visit: Yes Qualifiers: Encounter type: subsequent encounter Qualified Code(s): S81.811D - Laceration without foreign body, right lower leg, subsequent encounter (10) History of prostate cancer SNOMED Code(s): 116167917 ICD Code: Z85.46 - PERSONAL HISTORY OF MALIGNANT NEOPLASM OF PROSTATE Status: Chronic Priority: Medium Current Visit: Yes (11) Hepatic encephalopathy SNOMED Code(s): 41836724 ICD Code: K72.90 - HEPATIC FAILURE, UNSPECIFIED WITHOUT COMA Status: Acute Priority: High Current Visit: Yes Problem List Initiated/Reviewed/Updated: Yes Orders Last 24hrs: Active Orders 24 hr Category Date Time Status Patient Status [ADT] Routine ADT 05/25/18 19:01 Active Cardiac Monitoring [RC] . DIRECTED Care 05/25/18 10:50 Inactive EKG Documentation Completion [RC] AM Care 05/26/18 05:11 Ordered EKG Documentation Completion [RC] ASDIRECTED Care 05/25/18 12:13 Active EKG Documentation Completion [RC] STAT Care 05/25/18 10:51 Inactive May Shower [RC] ASDIRECTED Care 05/25/18 20:13 Ordered Oxygen Therapy [RC] PRN Care 05/25/18 20:13 Ordered Oxygen Therapy, ED [RC] ASDIRECTED Care 05/25/18 10:52 Inactive Pulse Oximetry [RC] PRN Care 05/25/18 20:14 Ordered Up ad Antwon [RC] ASDIRECTED Care 05/25/18 20:13 Ordered VTE/DVT Education [RC] PER UNIT ROUTINE Care 05/25/18 20:13 Ordered Consult to Pulmonary Rehabilitation [CONS] Routine Cons 05/25/18 20:33 Ordered Heart Healthy Diet [DIET] Diet 05/26/18 Lunch Ordered Nothing per Oral After Midnight Diet [DIET] Diet 05/25/18 Dinner Ordered Abdomen Comp [US] Routine Exams 05/26/18 09:00 Ordered Chest 2V [CR] AM Exams 05/27/18 05:11 Ordered Echo Comp wo Cont [US] Routine Exams 05/25/18 20:28 Ordered Venous Doppler Lwr Ext Bi [US] Routine Exams 05/26/18 09:00 Ordered C-REACTIVE PROTEIN [CHEM] AM Lab 05/26/18 05:11 Ordered C-REACTIVE PROTEIN [CHEM] AM Lab 05/27/18 05:11 Ordered C-REACTIVE PROTEIN [CHEM] AM Lab 05/28/18 05:11 Ordered C-REACTIVE PROTEIN [CHEM] AM Lab 05/29/18 05:11 Ordered C-REACTIVE PROTEIN [CHEM] AM Lab 05/30/18 05:11 Ordered CBC WITH AUTO DIFF [HEME] AM Lab 05/26/18 05:11 Ordered CBC WITH AUTO DIFF [HEME] AM Lab 05/27/18 05:11 Ordered CBC WITH AUTO DIFF [HEME] AM Lab 05/28/18 05:11 Ordered CBC WITH AUTO DIFF [HEME] AM Lab 05/29/18 05:11 Ordered CBC WITH AUTO DIFF [HEME] AM Lab 05/30/18 05:11 Ordered COMPREHENSIVE METABOLIC PN,CMP [CHEM] AM Lab 05/26/18 05:11 Ordered COMPREHENSIVE METABOLIC PN,CMP [CHEM] AM Lab 05/27/18 05:11 Ordered COMPREHENSIVE METABOLIC PN,CMP [CHEM] AM Lab 05/28/18 05:11 Ordered COMPREHENSIVE METABOLIC PN,CMP [CHEM] AM Lab 05/29/18 05:11 Ordered COMPREHENSIVE METABOLIC PN,CMP [CHEM] AM Lab 05/30/18 05:11 Ordered DRUG SCREEN, URINE [URCHEM] Stat Lab 05/25/18 16:37 Ordered HEPATITIS PANEL (4) [REF] Routine Lab 05/25/18 20:30 Ordered MAGNESIUM [CHEM] AM Lab 05/26/18 05:11 Ordered MAGNESIUM [CHEM] AM Lab 05/27/18 05:11 Ordered MAGNESIUM [CHEM] AM Lab 05/28/18 05:11 Ordered MAGNESIUM [CHEM] AM Lab 05/29/18 05:11 Ordered MAGNESIUM [CHEM] AM Lab 05/30/18 05:11 Ordered MYCOPLASMA PNEUMONIAE IGM AB [CHEM] Stat Lab 05/25/18 20:45 Ordered PSA SCREEN [CHEM] Routine Lab 05/25/18 20:29 Ordered STREP PNEUMONIAE ANTIGEN [MREF] Routine Lab 05/25/18 20:45 Ordered TROPONIN I [CHEM] AM Lab 05/26/18 05:11 Ordered TROPONIN I [CHEM] Stat Lab 05/25/18 20:13 Ordered UA W/MICROSCOPIC [URIN] Stat Lab 05/25/18 16:37 Ordered Acetaminophen [Tylenol] Med 05/25/18 20:13 Ordered 650 mg PO Q4H PRN Enoxaparin [Lovenox] Med 05/25/18 20:34 Once 120 mg SUBCUT ONETIME ONE Morphine Med 05/25/18 20:13 Ordered 2 mg IVPUSH Q2H PRN Sodium Chloride 0.9% [Normal Saline] 1,000 ml Med 05/25/18 14:15 Active IV ASDIRECTED Sodium Chloride 0.9% [Normal Saline] 1,000 ml Med 05/25/18 20:45 Ordered IV ASDIRECTED Sodium Chloride 0.9% [Normal Saline] 100 ml Med 05/25/18 13:45 Active IV ASDIRECTED Sodium Chloride 0.9% [Saline Flush] Med 05/25/18 12:13 Active 10 ml FLUSH ASDIRECTED PRN Peripheral IV Insertion Adult [OM.PC] Routine Oth 05/25/18 12:13 Ordered Resuscitation Status Routine Resus Stat 05/25/18 20:30 Ordered EKG 12 Lead [EK] AM Ther 05/26/18 05:11 Ordered EKG 12 Lead [EK] Stat Ther 05/25/18 12:13 Ordered Lexiscan [EKG Stress NM Adenosine] [EK] Routine Ther 05/26/18 05:11 Ordered Medication Orders Acetaminophen (Tylenol) 650 mg PO Q4H PRN PRN Reason: Pain (Mild 1-3)/fever Enoxaparin Sodium (Lovenox) 120 mg SUBCUT ONETIME ONE Stop: 05/25/18 20:35 Sodium Chloride (Normal Saline) 100 mls @ 60 mls/hr IV ASDIRECTED [facility] Last Admin: 05/25/18 13:54 Dose: 60 mls/hr Sodium Chloride (Normal Saline) 1,000 mls @ 100 mls/hr IV ASDIRECTED [facility] Sodium Chloride (Normal Saline) 1,000 mls @ 125 mls/hr IV ASDIRECTED [facility] Morphine Sulfate (Morphine) 2 mg IVPUSH Q2H PRN PRN Reason: Pain (severe 7-10) Stop: 05/26/18 20:16 Sodium Chloride (Saline Flush) 10 ml FLUSH ASDIRECTED PRN PRN Reason: Keep Vein Open Last Admin: 05/25/18 12:34 Dose: 10 ml Assessment/Plan Comment:: I/P: Acute: Hepatic Encephalopathy NOS * Poor historian, seems confused/has difficulty when asked questions * CT Abdomen: * 1. Findings of cirrhosis within the liver. Probable focal fatty sparing next to the gallbladder. * 2. Small amount of ascites. * 3. Right abdominal wall hernia with no findings of bowel incarceration. * Ammonia 32 * Hepatitis Panel pending * EtOH negative in ED * Drug screen pending Elevated Troponin * Cannot exclude Type I NH, looking for other sources * 0.125, 0.118, 0.117 * SOB with exertion, "heart burn" yesterday * Repeat troponin Q6H * Lexiscan in AM Elevated D-Dimer * 4.03 * Angiogram--> no acute abnormal findings * There is some edema and tenderness to RLE, although he did recently injure the knee and has a laceration healing * Venous doppler LE * Hold Lovenox d/t thrombocytopenia Elevated Bilirubin * Total Bilirubin 6, Direct 2.1 * Abd CT: nothing acute * Abd U/S pending Thrombocytopenia * Most likely 2/2 hepatic disease * Plt 55 * No anticoagulation for now SOB and Cough * Mycoplasma and Strep pneumo pending * CXR: no acute findings * Repeat CXR in 2 days * Afebrile, nonproductive * O2 98% on RA Laceration to RLE * 3-4" * Mildly increased warmth and edema to the lower leg * No purulent discharge from wound * Monitor Chronic: HTN HLD * Lipid panel pending CHF, unknown EF * 2+ pitting edema of R leg only * SOB, orthopnea * BNP 253 * Takes Lasix at home--> continue * ECHO in AM h/o Prostate CA * PSA <0.1 Plan: Transferred to Observation today He remains stable IVF Other orders as indicated above Routine AM labs Heart Healthy Diet DVT Prophylaxis: none; thrombocytopenia GI Prophylaxis: Protonix Ambulate ad antwon Code Status: Full code; PCP: Unknown, states "I see everyone" at [facility] in [place]; need to establish local PCP
[2018-05-25] MEDS: Sodium Chloride 0.9% 1,000 ML IV SCH (21:46)
[2018-05-25] MEDS: ATORVASTATIN 20 MG PO SCH (21:51)
[2018-05-25] MEDS: LISINOPRIL 10 MG PO SCH (21:51)
[2018-05-26] MEDS ORDERED: Ondansetron 4 MG/2 ML SDV IVPUSH PRN (04:13)
[2018-05-26] MEDS: Sodium Chloride 0.9% 1,000 ML IV SCH ×2 (05:24→19:02)
[2018-05-26] MEDS ORDERED: Furosemide 20 MG Tab**OWN MED PO SCH (09:00)
--- NOTE | 2018-05-26 09:49 | US ---
Abdominal ultrasound: Multiple real-time images of the abdomen were obtained. Comparison: Previous abdominal and pelvic CT study of 05/25/18. Technologist's note: Very difficult scan due to habitus Liver is very irregular in its echo pattern. Hypoechoic area is seen next to the gallbladder most likely due to focal fatty sparing. Gallbladder shows no shadowing gallstones. No gallbladder wall thickening or biliary duct dilatation is seen. Cyst is noted within the left kidney measuring 6.3 cm. Kidneys otherwise show no hydronephrosis or mass. Right kidney length is 11.9 cm and left kidney length is 12.3 cm. Spleen appears within normal limits in size. Aorta and pancreas are poorly seen. Small amount of ascites is seen. Impression: 1. Very irregular echo pattern within the liver most likely due to fatty infiltration and change from cirrhosis. Slight focal fatty sparing is seen next to the gallbladder. 2. Left renal cyst. 3. Small amount of ascites. 4. Aorta and pancreas are poorly seen. Other portions of the abdominal ultrasound show no discrete abnormality. Diagnostic code #3
[2018-05-26] MEDS: Folic Acid 1 MG Tab**OWN MED PO SCH (10:15)
[2018-05-26] MEDS: LISINOPRIL 10 MG PO SCH (10:15)
--- NOTE | 2018-05-26 11:20 | PCM.PRNOTE ---
- Free Text/Narrative Note: Date of service: 05/26/18 Procedure: Regadenoson (Lexiscan) stress test Ordering provider: Dr. Crystal Granado/Abbi Kurtz PA-C Indication: SOB with exertion Baseline EKG: Sinus Rhythm at 63 bpm. Prolonged QT segment with T-wave inversion in V1. The patient received Regadenoson (Lexiscan) 0.4 mg IV and a nuclear agent using standard protocol. The patient was seated for the procedure. Lexiscan test: Heart rate: 103 bpm; Blood pressure: 120/69 mm Hg; Oxygenation: 98%. EKG changes of ischemia during stress test or in recovery: None Arrhythmias: None Adverse effects of Lexiscan: Nausea,vomiting, lightheaded and briefly short of breath. All relieving spontaneously resolving at completion of test. Test terminated due to: end of protocol Impression: 1. Negative Lexiscan stress test ECG for ischemia. 2. Nuclear images pending and will be reported separately per Radiologist.
--- NOTE | 2018-05-26 11:47 | US ---
Bilateral lower extremity deep venous ultrasound: Duplex and color flow imaging was obtained of the right and left common femoral, proximal greater saphenous, superficial femoral, popliteal, posterior tibial and peroneal veins. Comparison: No prior venous exam. Findings: Normal phasic flow, augmentation and compression is seen. Impression: 1. No evidence of deep venous thrombosis is seen within the right or left lower extremities. Diagnostic code #1
[2018-05-26] MEDS ORDERED: hydrALAZINE 20 MG/ML SDV IVPUSH PRN (12:27)
[2018-05-26] MEDS ORDERED: Metoprolol Tartrate 5 MG/5 ML SDV IVPUSH PRN (12:27)
[2018-05-26] MEDS ORDERED: LORazepam 2 MG/ML SDV IVPUSH PRN (12:27)
--- NOTE | 2018-05-26 13:53 | NM ---
Cardiolite cardiac exam with Lexiscan Technique: I have data stating patient was stressed utilizing Lexiscan protocol. Stress dose of technetium 99m Cardiolite was 11.4 mCi. Rest dose was 31.1 mCi. SPECT imaging was obtained in 3 planes for both portions of the study. Study was also gated. Low dose chest CT performed to allow for attenuation correction. Comparison: No prior cardiac imaging. Findings: Left ventricular cavity appears somewhat enlarged. Diminished density noted within the inferior wall which is similar between rest and stress portions of the study most likely due to diaphragmatic artifact. No reversible type change is seen. Ejection fraction is 62%. Slightly diminished wall thickening is seen within the inferior wall. Wall thickening is otherwise normal. Impression: 1. Diminished activity within the inferior wall as noted above most likely due to diaphragmatic artifact or less likely previous infarct. 2. Left ventricular cavity appears somewhat enlarged. 3. No findings of reversible ischemia are seen. Diagnostic code #3
--- NOTE | 2018-05-26 16:46 | PCM.PN ---
<Izzy Francis - Last Filed: 05/26/18 16:51> - General Info Date of Service: 05/26/18 Admission Dx/Problem (Free Text): Admission Diagnosis/Problem Admission Diagnosis/Problem Chest pain Functional Status: Reports: Pain Controlled, Tolerating Diet, Ambulating, Urinating - Review of Systems General: Reports: No Symptoms HEENT: Reports: No Symptoms Pulmonary: Reports: No Symptoms Cardiovascular: Reports: No Symptoms Gastrointestinal: Reports: Nausea, Vomiting Genitourinary: Reports: No Symptoms Musculoskeletal: Reports: No Symptoms Skin: Reports: No Symptoms Neurological: Reports: No Symptoms Psychiatric: Reports: No Symptoms Systems Review Comment:: Patient states he is doing well. Currently denies any pain. He reports nausea and vomiting earlier today. This has now resolved. Denies any other symptoms. - Patient Data Vitals - Most Recent: Last Vital Signs Temp 98.1 F 05/26/18 15:32 Pulse 57 L 05/26/18 15:32 Resp 18 05/26/18 15:32 BP 128/63 05/26/18 15:32 Pulse Ox 95 05/26/18 15:32 Weight - Most Recent: 124.001 kg I&O - Last 24 Hours: Intake & Output 05/26/18 05/26/18 05/26/18 06:59 14:59 22:59 Intake Total 850 698 Output Total 400 600 Balance 450 98 Lab Results Last 24 Hours: Laboratory Results - last 24 hr 05/25/18 05/25/18 05/25/18 Range/Units 14:50 14:50 14:56 WBC (4.23-9.07) K/mm3 RBC (4.63-6.08) M/mm3 Hgb (13.7-17.5) gm/L Hct (40.1-51.0) % MCV (79.0-92.2) fl MCH (25.7-32.2) pg MCHC (32.2-35.5) g/dl RDW Std Deviation (35.1-43.9) fL Plt Count (163-337) K/mm3 MPV (9.4-12.3) fl Neut % (Auto) (34.0-67.9) % Lymph % (Auto) (21.8-53.1) % [place] % (Auto) (5.3-12.2) % Eos % (Auto) (0.8-7.0) Baso % (Auto) (0.1-1.2) % Neut # (Auto) (1.78-5.38) K/mm3 Lymph # (Auto) (1.32-3.57) K/mm3 [place] # (Auto) (0.30-0.82) K/mm3 Eos # (Auto) (0.04-0.54) K/mm3 Baso # (Auto) (0.01-0.08) K/mm3 Manual Slide Review PT (9.5-12.1) SECONDS INR Sodium (136-145) mEq/L Potassium (3.5-5.1) mEq/L Chloride (98-107) mEq/L Carbon Dioxide (21-32) mEq/L Anion Gap (5-15) BUN (7-18) mg/dL Creatinine (0.7-1.3) mg/dL Est Cr Clr Drug Dosing mL/min Estimated GFR (MDRD) (>60) mL/min BUN/Creatinine Ratio (14-18) Glucose (74-106) mg/dL Calcium (8.5-10.1) mg/dL Magnesium (1.8-2.4) mg/dl Total Bilirubin (0.2-1.0) mg/dL Direct Bilirubin 2.10 H (0.0-0.2) mg/dl AST (15-37) U/L ALT (16-63) U/L Alkaline Phosphatase (46-116) U/L Troponin I (0.00-0.056) ng/mL C-Reactive Protein (<1.0) mg/dL Total Protein (6.4-8.2) g/dl Albumin (3.4-5.0) g/dl Globulin gm/dL Albumin/Globulin Ratio (1-2) Triglycerides (<150) mg/dL Cholesterol (<200) mg/dL LDL Cholesterol Direct (<100) mg/dL HDL Cholesterol (40-59) mg/dL PSA Screen < 0.1 (0.0-4.0) ng/mL TSH 3rd Generation 1.425 (0.358-3.74) uIU/mL Urine Color (Yellow) Urine Appearance (Clear) Urine pH (5.0-8.0) Ur Specific [place] (1.005-1.030) Urine Protein (Negative) Urine Glucose (UA) (Negative) Urine Ketones (Negative) Urine Occult Blood (Negative) Urine Nitrite (Negative) Urine Bilirubin (Negative) Urine Urobilinogen (0.2-1.0) Ur Leukocyte Esterase (Negative) Urine RBC (0-5) /hpf Urine WBC (0-5) /hpf Ur Epithelial Cells (0-5) /hpf Urine Bacteria (FEW) /hpf Urine Mucus (FEW) /hpf Urine Opiates Screen (NEGATIVE) Ur Buprenorphine Scrn (NEGATIVE) Ur Oxycodone Screen (NEGATIVE) Urine Methadone Screen (NEGATIVE) Ur Propoxyphene Screen (NEGATIVE) Ur Barbiturates Screen (NEGATIVE) Ur Tricyclics Screen (NEGATIVE) Ur Phencyclidine Scrn (NEGATIVE) Ur Amphetamine Screen (NEGATIVE) U Methamphetamines Scrn (NEGATIVE) U Benzodiazepines Scrn (NEGATIVE) U Cocaine Metab Screen (NEGATIVE) U Marijuana (THC) Screen (NEGATIVE) Mycoplasma pneumon IgM (NEGATIVE) 05/25/18 05/25/18 05/25/18 Range/Units 19:30 20:55 21:54 WBC (4.23-9.07) K/mm3 RBC (4.63-6.08) M/mm3 Hgb (13.7-17.5) gm/L Hct (40.1-51.0) % MCV (79.0-92.2) fl MCH (25.7-32.2) pg MCHC (32.2-35.5) g/dl RDW Std Deviation (35.1-43.9) fL Plt Count (163-337) K/mm3 MPV (9.4-12.3) fl Neut % (Auto) (34.0-67.9) % Lymph % (Auto) (21.8-53.1) % [place] % (Auto) (5.3-12.2) % Eos % (Auto) (0.8-7.0) Baso % (Auto) (0.1-1.2) % Neut # (Auto) (1.78-5.38) K/mm3 Lymph # (Auto) (1.32-3.57) K/mm3 [place] # (Auto) (0.30-0.82) K/mm3 Eos # (Auto) (0.04-0.54) K/mm3 Baso # (Auto) (0.01-0.08) K/mm3 Manual Slide Review PT (9.5-12.1) SECONDS INR Sodium (136-145) mEq/L Potassium (3.5-5.1) mEq/L Chloride (98-107) mEq/L Carbon Dioxide (21-32) mEq/L Anion Gap (5-15) BUN (7-18) mg/dL Creatinine (0.7-1.3) mg/dL Est Cr Clr Drug Dosing mL/min Estimated GFR (MDRD) (>60) mL/min BUN/Creatinine Ratio (14-18) Glucose (74-106) mg/dL Calcium (8.5-10.1) mg/dL Magnesium (1.8-2.4) mg/dl Total Bilirubin (0.2-1.0) mg/dL Direct Bilirubin (0.0-0.2) mg/dl AST (15-37) U/L ALT (16-63) U/L Alkaline Phosphatase (46-116) U/L Troponin I 0.117 H* (0.00-0.056) ng/mL C-Reactive Protein (<1.0) mg/dL Total Protein (6.4-8.2) g/dl Albumin (3.4-5.0) g/dl Globulin gm/dL Albumin/Globulin Ratio (1-2) Triglycerides (<150) mg/dL Cholesterol (<200) mg/dL LDL Cholesterol Direct (<100) mg/dL HDL Cholesterol (40-59) mg/dL PSA Screen (0.0-4.0) ng/mL TSH 3rd Generation (0.358-3.74) uIU/mL Urine Color Jeni H (Yellow) Urine Appearance Slt cloudy H (Clear) Urine pH 7.5 (5.0-8.0) Ur Specific [place] 1.015 (1.005-1.030) Urine Protein Negative (Negative) Urine Glucose (UA) Negative (Negative) Urine Ketones Negative (Negative) Urine Occult Blood Negative (Negative) Urine Nitrite Negative (Negative) Urine Bilirubin 1+ H (Negative) Urine Urobilinogen >=8.0 H (0.2-1.0) Ur Leukocyte Esterase Negative (Negative) Urine RBC 0-5 (0-5) /hpf Urine WBC 0-5 (0-5) /hpf Ur Epithelial Cells 0-5 (0-5) /hpf Urine Bacteria Moderate H (FEW) /hpf Urine Mucus Not seen (FEW) /hpf Urine Opiates Screen (NEGATIVE) Ur Buprenorphine Scrn (NEGATIVE) Ur Oxycodone Screen (NEGATIVE) Urine Methadone Screen (NEGATIVE) Ur Propoxyphene Screen (NEGATIVE) Ur Barbiturates Screen (NEGATIVE) Ur Tricyclics Screen (NEGATIVE) Ur Phencyclidine Scrn (NEGATIVE) Ur Amphetamine Screen (NEGATIVE) U Methamphetamines Scrn (NEGATIVE) U Benzodiazepines Scrn (NEGATIVE) U Cocaine Metab Screen (NEGATIVE) U Marijuana (THC) Screen (NEGATIVE) Mycoplasma pneumon IgM Negative (NEGATIVE) 05/25/18 05/26/18 05/26/18 Range/Units 21:54 03:02 03:02 WBC 4.45 (4.23-9.07) K/mm3 RBC 3.56 L (4.63-6.08) M/mm3 Hgb 12.7 L (13.7-17.5) gm/L Hct 37.0 L (40.1-51.0) % MCV 103.9 H (79.0-92.2) fl MCH 35.7 H (25.7-32.2) pg MCHC 34.3 (32.2-35.5) g/dl RDW Std Deviation 59.2 H (35.1-43.9) fL Plt Count 55 L (163-337) K/mm3 MPV 9.2 L (9.4-12.3) fl Neut % (Auto) 59.8 (34.0-67.9) % Lymph % (Auto) 22.2 (21.8-53.1) % [place] % (Auto) 14.4 H (5.3-12.2) % Eos % (Auto) 2.5 (0.8-7.0) Baso % (Auto) 0.9 (0.1-1.2) % Neut # (Auto) 2.66 (1.78-5.38) K/mm3 Lymph # (Auto) 0.99 L (1.32-3.57) K/mm3 [place] # (Auto) 0.64 (0.30-0.82) K/mm3 Eos # (Auto) 0.11 (0.04-0.54) K/mm3 Baso # (Auto) 0.04 (0.01-0.08) K/mm3 Manual Slide Review Abnormal smear PT (9.5-12.1) SECONDS INR Sodium 135 L (136-145) mEq/L Potassium 3.9 (3.5-5.1) mEq/L Chloride 104 (98-107) mEq/L Carbon Dioxide 20 L (21-32) mEq/L Anion Gap 14.9 (5-15) BUN 6 L (7-18) mg/dL Creatinine 0.8 (0.7-1.3) mg/dL Est Cr Clr Drug Dosing 105.19 mL/min Estimated GFR (MDRD) > 60 (>60) mL/min BUN/Creatinine Ratio 7.5 L (14-18) Glucose 97 (74-106) mg/dL Calcium 8.1 L (8.5-10.1) mg/dL Magnesium 1.8 (1.8-2.4) mg/dl Total Bilirubin 5.4 H (0.2-1.0) mg/dL Direct Bilirubin (0.0-0.2) mg/dl AST 74 H (15-37) U/L ALT 34 (16-63) U/L Alkaline Phosphatase 120 H (46-116) U/L Troponin I (0.00-0.056) ng/mL C-Reactive Protein 0.9 (<1.0) mg/dL Total Protein 6.8 (6.4-8.2) g/dl Albumin 2.5 L (3.4-5.0) g/dl Globulin 4.3 gm/dL Albumin/Globulin Ratio 0.6 L (1-2) Triglycerides 57 (<150) mg/dL Cholesterol 66 (<200) mg/dL LDL Cholesterol Direct 35 (<100) mg/dL HDL Cholesterol 36.0 L (40-59) mg/dL PSA Screen (0.0-4.0) ng/mL TSH 3rd Generation (0.358-3.74) uIU/mL Urine Color (Yellow) Urine Appearance (Clear) Urine pH (5.0-8.0) Ur Specific [place] (1.005-1.030) Urine Protein (Negative) Urine Glucose (UA) (Negative) Urine Ketones (Negative) Urine Occult Blood (Negative) Urine Nitrite (Negative) Urine Bilirubin (Negative) Urine Urobilinogen (0.2-1.0) Ur Leukocyte Esterase (Negative) Urine RBC (0-5) /hpf Urine WBC (0-5) /hpf Ur Epithelial Cells (0-5) /hpf Urine Bacteria (FEW) /hpf Urine Mucus (FEW) /hpf Urine Opiates Screen Negative (NEGATIVE) Ur Buprenorphine Scrn Negative (NEGATIVE) Ur Oxycodone Screen Negative (NEGATIVE) Urine Methadone Screen Negative (NEGATIVE) Ur Propoxyphene Screen Negative (NEGATIVE) Ur Barbiturates Screen Negative (NEGATIVE) Ur Tricyclics Screen Negative (NEGATIVE) Ur Phencyclidine Scrn Negative (NEGATIVE) Ur Amphetamine Screen Negative (NEGATIVE) U Methamphetamines Scrn Negative (NEGATIVE) U Benzodiazepines Scrn Negative (NEGATIVE) U Cocaine Metab Screen Negative (NEGATIVE) U Marijuana (THC) Screen Presumptive positive H (NEGATIVE) Mycoplasma pneumon IgM (NEGATIVE) 05/26/18 05/26/18 05/26/18 Range/Units 03:02 03:02 09:43 WBC (4.23-9.07) K/mm3 RBC (4.63-6.08) M/mm3 Hgb (13.7-17.5) gm/L Hct (40.1-51.0) % MCV (79.0-92.2) fl MCH (25.7-32.2) pg MCHC (32.2-35.5) g/dl RDW Std Deviation (35.1-43.9) fL Plt Count (163-337) K/mm3 MPV (9.4-12.3) fl Neut % (Auto) (34.0-67.9) % Lymph % (Auto) (21.8-53.1) % [place] % (Auto) (5.3-12.2) % Eos % (Auto) (0.8-7.0) Baso % (Auto) (0.1-1.2) % Neut # (Auto) (1.78-5.38) K/mm3 Lymph # (Auto) (1.32-3.57) K/mm3 [place] # (Auto) (0.30-0.82) K/mm3 Eos # (Auto) (0.04-0.54) K/mm3 Baso # (Auto) (0.01-0.08) K/mm3 Manual Slide Review PT 16.8 H (9.5-12.1) SECONDS INR 1.55 Sodium (136-145) mEq/L Potassium (3.5-5.1) mEq/L Chloride (98-107) mEq/L Carbon Dioxide (21-32) mEq/L Anion Gap (5-15) BUN (7-18) mg/dL Creatinine (0.7-1.3) mg/dL Est Cr Clr Drug Dosing mL/min Estimated GFR (MDRD) (>60) mL/min BUN/Creatinine Ratio (14-18) Glucose (74-106) mg/dL Calcium (8.5-10.1) mg/dL Magnesium (1.8-2.4) mg/dl Total Bilirubin (0.2-1.0) mg/dL Direct Bilirubin (0.0-0.2) mg/dl AST (15-37) U/L ALT (16-63) U/L Alkaline Phosphatase (46-116) U/L Troponin I 0.119 H* 0.108 H* (0.00-0.056) ng/mL C-Reactive Protein (<1.0) mg/dL Total Protein (6.4-8.2) g/dl Albumin (3.4-5.0) g/dl Globulin gm/dL Albumin/Globulin Ratio (1-2) Triglycerides (<150) mg/dL Cholesterol (<200) mg/dL LDL Cholesterol Direct (<100) mg/dL HDL Cholesterol (40-59) mg/dL PSA Screen (0.0-4.0) ng/mL TSH 3rd Generation (0.358-3.74) uIU/mL Urine Color (Yellow) Urine Appearance (Clear) Urine pH (5.0-8.0) Ur Specific [place] (1.005-1.030) Urine Protein (Negative) Urine Glucose (UA) (Negative) Urine Ketones (Negative) Urine Occult Blood (Negative) Urine Nitrite (Negative) Urine Bilirubin (Negative) Urine Urobilinogen (0.2-1.0) Ur Leukocyte Esterase (Negative) Urine RBC (0-5) /hpf Urine WBC (0-5) /hpf Ur Epithelial Cells (0-5) /hpf Urine Bacteria (FEW) /hpf Urine Mucus (FEW) /hpf Urine Opiates Screen (NEGATIVE) Ur Buprenorphine Scrn (NEGATIVE) Ur Oxycodone Screen (NEGATIVE) Urine Methadone Screen (NEGATIVE) Ur Propoxyphene Screen (NEGATIVE) Ur Barbiturates Screen (NEGATIVE) Ur Tricyclics Screen (NEGATIVE) Ur Phencyclidine Scrn (NEGATIVE) Ur Amphetamine Screen (NEGATIVE) U Methamphetamines Scrn (NEGATIVE) U Benzodiazepines Scrn (NEGATIVE) U Cocaine Metab Screen (NEGATIVE) U Marijuana (THC) Screen (NEGATIVE) Mycoplasma pneumon IgM (NEGATIVE) 05/26/18 Range/Units 15:30 WBC (4.23-9.07) K/mm3 RBC (4.63-6.08) M/mm3 Hgb (13.7-17.5) gm/L Hct (40.1-51.0) % MCV (79.0-92.2) fl MCH (25.7-32.2) pg MCHC (32.2-35.5) g/dl RDW Std Deviation (35.1-43.9) fL Plt Count (163-337) K/mm3 MPV (9.4-12.3) fl Neut % (Auto) (34.0-67.9) % Lymph % (Auto) (21.8-53.1) % [place] % (Auto) (5.3-12.2) % Eos % (Auto) (0.8-7.0) Baso % (Auto) (0.1-1.2) % Neut # (Auto) (1.78-5.38) K/mm3 Lymph # (Auto) (1.32-3.57) K/mm3 [place] # (Auto) (0.30-0.82) K/mm3 Eos # (Auto) (0.04-0.54) K/mm3 Baso # (Auto) (0.01-0.08) K/mm3 Manual Slide Review PT (9.5-12.1) SECONDS INR Sodium (136-145) mEq/L Potassium (3.5-5.1) mEq/L Chloride (98-107) mEq/L Carbon Dioxide (21-32) mEq/L Anion Gap (5-15) BUN (7-18) mg/dL Creatinine (0.7-1.3) mg/dL Est Cr Clr Drug Dosing mL/min Estimated GFR (MDRD) (>60) mL/min BUN/Creatinine Ratio (14-18) Glucose (74-106) mg/dL Calcium (8.5-10.1) mg/dL Magnesium (1.8-2.4) mg/dl Total Bilirubin (0.2-1.0) mg/dL Direct Bilirubin (0.0-0.2) mg/dl AST (15-37) U/L ALT (16-63) U/L Alkaline Phosphatase (46-116) U/L Troponin I 0.114 H* (0.00-0.056) ng/mL C-Reactive Protein (<1.0) mg/dL Total Protein (6.4-8.2) g/dl Albumin (3.4-5.0) g/dl Globulin gm/dL Albumin/Globulin Ratio (1-2) Triglycerides (<150) mg/dL Cholesterol (<200) mg/dL LDL Cholesterol Direct (<100) mg/dL HDL Cholesterol (40-59) mg/dL PSA Screen (0.0-4.0) ng/mL TSH 3rd Generation (0.358-3.74) uIU/mL Urine Color (Yellow) Urine Appearance (Clear) Urine pH (5.0-8.0) Ur Specific [place] (1.005-1.030) Urine Protein (Negative) Urine Glucose (UA) (Negative) Urine Ketones (Negative) Urine Occult Blood (Negative) Urine Nitrite (Negative) Urine Bilirubin (Negative) Urine Urobilinogen (0.2-1.0) Ur Leukocyte Esterase (Negative) Urine RBC (0-5) /hpf Urine WBC (0-5) /hpf Ur Epithelial Cells (0-5) /hpf Urine Bacteria (FEW) /hpf Urine Mucus (FEW) /hpf Urine Opiates Screen (NEGATIVE) Ur Buprenorphine Scrn (NEGATIVE) Ur Oxycodone Screen (NEGATIVE) Urine Methadone Screen (NEGATIVE) Ur Propoxyphene Screen (NEGATIVE) Ur Barbiturates Screen (NEGATIVE) Ur Tricyclics Screen (NEGATIVE) Ur Phencyclidine Scrn (NEGATIVE) Ur Amphetamine Screen (NEGATIVE) U Methamphetamines Scrn (NEGATIVE) U Benzodiazepines Scrn (NEGATIVE) U Cocaine Metab Screen (NEGATIVE) U Marijuana (THC) Screen (NEGATIVE) Mycoplasma pneumon IgM (NEGATIVE) Med Orders - Current: Current Medications Acetaminophen (Tylenol) 650 mg PO Q4H PRN PRN Reason: Pain (Mild 1-3)/fever Apixaban (Eliquis) 2.5 mg PO BID [facility] Folic Acid (Folic Acid) 1 mg PO DAILY [facility] Last Admin: 05/26/18 10:15 Dose: 1 mg Furosemide (Lasix) 40 mg PO DAILY [facility] Hydralazine HCl (Apresoline) 20 mg IVPUSH Q4H PRN PRN Reason: Hypertension Sodium Chloride (Normal Saline) 1,000 mls @ 125 mls/hr IV ASDIRECTED [facility] Last Admin: 05/26/18 05:24 Dose: 125 mls/hr Lisinopril (Prinivil) 10 mg PO DAILY [facility] Last Admin: 05/26/18 10:15 Dose: 10 mg Lorazepam (Ativan) 2 mg IVPUSH Q4H PRN PRN Reason: Seizures Magnesium Sulfate (Pharmacy To Dose - Magnesium Replacement) 1 dose .XX ASDIRECTED [facility] Metoprolol Tartrate (Lopressor) 5 mg IVPUSH Q4H PRN PRN Reason: Tachycardia Morphine Sulfate (Morphine) 2 mg IVPUSH Q2H PRN PRN Reason: Pain (severe 7-10) Stop: 05/26/18 20:16 Last Admin: 05/26/18 04:00 Dose: 2 mg Multivitamins (Thera) 1 each PO BEDTIME [facility] Atorvastatin 20 Mg (TabOwn Med) 20 mg PO BEDTIME [facility] Last Admin: 05/25/18 21:51 Dose: 20 mg Ondansetron HCl (Zofran) 4 mg IVPUSH Q4H PRN PRN Reason: Nausea/Vomiting Ursodiol 250 Mg Tab 0 each PO BEDTIME [facility] Potassium Chloride (Pharmacy To Dose - Potassium Replacement) 1 dose .XX ASDIRECTED [facility] Prednisone (Prednisone) 40 mg PO WITHBREAKFAST [facility] Sodium Chloride (Saline Flush) 10 ml FLUSH ASDIRECTED PRN PRN Reason: Keep Vein Open Last Admin: 05/25/18 12:34 Dose: 10 ml Spironolactone (Aldactone) 25 mg PO BID [facility] Thiamine HCl (Vitamin B-1) 100 mg PO BEDTIME [facility] Discontinued Medications Aspirin (Aspirin) 324 mg PO ONETIME ONE Stop: 05/25/18 10:54 Last Admin: 05/25/18 12:34 Dose: Not Given Aspirin (Aspirin) 324 mg PO ONETIME ONE Stop: 05/25/18 14:05 Last Admin: 05/25/18 14:50 Dose: 324 mg Diphenhydramine HCl (Benadryl) 50 mg IVPUSH ONETIME ONE Stop: 05/25/18 15:59 Last Admin: 05/25/18 16:43 Dose: Not Given Enoxaparin Sodium (Lovenox) 120 mg SUBCUT ONETIME ONE Stop: 05/25/18 20:35 Last Admin: 05/25/18 21:42 Dose: Not Given Furosemide (Lasix) 20 mg PO DAILY [facility] Last Admin: 05/26/18 10:15 Dose: 20 mg Haloperidol Lactate (Haldol) 5 mg IM ONETIME ONE Stop: 05/25/18 15:59 Last Admin: 05/25/18 16:43 Dose: Not Given Hydromorphone HCl (Dilaudid) 0.5 mg IVPUSH ONETIME ONE Stop: 05/25/18 15:59 Last Admin: 05/25/18 16:43 Dose: Not Given Sodium Chloride (Normal Saline) 100 mls @ 60 mls/hr IV ASDIRECTED [facility] Last Admin: 05/25/18 13:54 Dose: 60 mls/hr Sodium Chloride (Normal Saline) 1,000 mls @ 100 mls/hr IV ASDIRECTED [facility] Iopamidol (Isovue-370 (76%)) 100 ml IVPUSH ONETIME ONE Stop: 05/25/18 13:40 Last Admin: 05/25/18 13:53 Dose: 100 ml Iopamidol (Isovue-370 (76%)) 100 ml IVPUSH ONETIME ONE Stop: 05/25/18 13:43 Last Admin: 05/25/18 15:27 Dose: Not Given Iopamidol (Isovue-300 (61%)) 125 ml IVPUSH ONETIME ONE Stop: 05/25/18 17:13 Last Admin: 05/25/18 17:26 Dose: 150 ml Regadenoson (Lexiscan) 0.4 mg IVPUSH ONETIME ONE Stop: 05/26/18 06:50 Last Admin: 05/26/18 07:49 Dose: 0.4 mg Sodium Chloride (Saline Flush) 10 ml FLUSH ONETIME ONE Stop: 05/25/18 13:40 Last Admin: 05/25/18 13:54 Dose: 10 ml - Exam Quality Assessment: DVT Prophylaxis General: Cooperative, No Acute Distress HEENT: EOMI, Mucous Membr. Moist/[place] Neck: Supple, Trachea Midline Lungs: Clear to Auscultation, Normal Respiratory Effort Cardiovascular: Regular Rate, Regular Rhythm GI/Abdominal Exam: Normal Bowel Sounds, Non-Tender, Distended, Other (ascites; caput medusae) (Male) Exam: Deferred Back Exam: Normal Inspection Extremities: Normal Inspection, Normal Range of Motion, Pedal Edema, Other ( laceration right lower extremity) Peripheral Pulses: 2+: Radial (L), Radial (R), Posterior Tibial (L), Posterior Tibial (R) Skin: Warm, Dry, Intact Wound/Incisions: Other (open laceration right lower extremity, some oozing) Neurological: Other (confused) Psy/Mental Status: Alert, Normal Affect, Normal Mood Physical Findings Comments:: Patient is cooperative and in no apparent distress. He is confused and easily distracted throughout H&P. Abdomen is distended with ascites and caput medusae. There is a laceration on his right calf. Mild peripheral edema. No other abnormalities noted. - Problem List & Annotations (1) Cirrhosis SNOMED Code(s): 62411025 Code(s): K74.60 - UNSPECIFIED CIRRHOSIS OF LIVER Status: Acute Current Visit: Yes Qualifiers: Hepatic cirrhosis type: alcoholic cirrhosis (2) Elevated bilirubin SNOMED Code(s): 193954392 Code(s): R17 - UNSPECIFIED JAUNDICE Status: Acute Priority: High Current Visit: Yes (3) Elevated troponin SNOMED Code(s): 527008422, 954675996, 222315844 Code(s): R74.8 - ABNORMAL LEVELS OF OTHER SERUM ENZYMES Status: Acute Priority: High Current Visit: Yes - Plan Plan:: I/P: Acute: Cirrhosis * States he has previously been diagnosed with cirrhosis, likely alcohol-induced * History of alcoholism * EtOH negative on admission * Admits he is still drinking; amount unclear * Hepatitis panel pending * CT Abdomen: * 1. Findings of cirrhosis within the liver. Probable focal fatty sparing next to the gallbladder. * 2. Small amount of ascites. * 3. Right abdominal wall hernia with no findings of bowel incarceration * Maddrey's discriminate function for alcoholic hepatitis * 32.7 = poor prognosis * Patient may benefit from glucocortioid therapy - start prednisone * Meld score * 20 points * 19.6% 3 month mortality Altered mental status * Poor historian, seems confused/has difficulty when asked questions * Ammonia 32 - no hepatic encephalopathy * Drug screen presumptive positive for marijuana; all others negative * Likely due to elevated bilirubin Elevated Bilirubin, improving * Total Bilirubin 6 on admission --> now 5.4 * Abd CT: nothing acute * Abd U/S pending * Likely contributing to altered mental status Elevated Troponin, improving * 05/25 --> 0.125, 0.118, 0.117; 05/26 --> 0.119, 0.108, 0.114 * CKMB negative * Lexiscan negative * Likely due to renal insufficiency Elevated D-Dimer * 4.03 on admission * Angiogram--> no acute abnormal findings * Venous doppler LE * Mild edema in lower extremities * Hold Lovenox d/t thrombocytopenia - eliquis for DVT prophylaxis Thrombocytopenia * Most likely 2/2 hepatic disease * Plt 55 SOB and Cough * Mycoplasma negative; Strep pneumo pending * CXR: no acute findings * Repeat CXR in 1 day * Afebrile, nonproductive * O2 98% on RA Laceration to RLE * 3-4" * Mildly increased warmth and edema to the lower leg * No purulent discharge from wound * Monitor Chronic: HTN HLD * Lipid panel WNL CHF, unknown EF * 2+ pitting edema of R leg only * SOB, orthopnea * BNP 253 * Takes Lasix at home--> continue * ECHO done today h/o Prostate CA * PSA <0.1 Plan: Transferred to Observation today He remains stable IVF Other orders as indicated above Routine AM labs Heart Healthy Diet DVT Prophylaxis: none; thrombocytopenia GI Prophylaxis: Protonix Ambulate ad antwon Code Status: Full code; sister is POA PCP: Unknown, states "I see everyone" at [facility] in [place]; need to establish local PCP Izzy Francis, MS-3. Dr. Edwards has examined the patient and reviewed the note. <Rowena Edwards T - Last Filed: 05/26/18 18:54> - Review of Systems Systems Review Comment:: No overnight or acute issues. She has no chest or respiratory complaints. - Patient Data Vitals - Most Recent: Last Vital Signs Temp 36.7 C 05/26/18 15:32 Pulse 57 L 05/26/18 15:32 Resp 18 05/26/18 15:32 BP 128/63 05/26/18 15:32 Pulse Ox 95 05/26/18 15:32 I&O - Last 24 Hours: Intake & Output 05/26/18 05/26/18 05/26/18 06:59 14:59 22:59 Intake Total 850 818 Output Total 400 600 Balance 450 218 Lab Results Last 24 Hours: Laboratory Results - last 24 hr 05/25/18 05/25/18 05/25/18 Range/Units 14:50 14:56 19:30 WBC (4.23-9.07) K/mm3 RBC (4.63-6.08) M/mm3 Hgb (13.7-17.5) gm/L Hct (40.1-51.0) % MCV (79.0-92.2) fl MCH (25.7-32.2) pg MCHC (32.2-35.5) g/dl RDW Std Deviation (35.1-43.9) fL Plt Count (163-337) K/mm3 MPV (9.4-12.3) fl Neut % (Auto) (34.0-67.9) % Lymph % (Auto) (21.8-53.1) % [place] % (Auto) (5.3-12.2) % Eos % (Auto) (0.8-7.0) Baso % (Auto) (0.1-1.2) % Neut # (Auto) (1.78-5.38) K/mm3 Lymph # (Auto) (1.32-3.57) K/mm3 [place] # (Auto) (0.30-0.82) K/mm3 Eos # (Auto) (0.04-0.54) K/mm3 Baso # (Auto) (0.01-0.08) K/mm3 Manual Slide Review PT (9.5-12.1) SECONDS INR Sodium (136-145) mEq/L Potassium (3.5-5.1) mEq/L Chloride (98-107) mEq/L Carbon Dioxide (21-32) mEq/L Anion Gap (5-15) BUN (7-18) mg/dL Creatinine (0.7-1.3) mg/dL Est Cr Clr Drug Dosing mL/min Estimated GFR (MDRD) (>60) mL/min BUN/Creatinine Ratio (14-18) Glucose (74-106) mg/dL Calcium (8.5-10.1) mg/dL Magnesium (1.8-2.4) mg/dl Total Bilirubin (0.2-1.0) mg/dL AST (15-37) U/L ALT (16-63) U/L Alkaline Phosphatase (46-116) U/L Troponin I (0.00-0.056) ng/mL C-Reactive Protein (<1.0) mg/dL Total Protein (6.4-8.2) g/dl Albumin (3.4-5.0) g/dl Globulin gm/dL Albumin/Globulin Ratio (1-2) Triglycerides (<150) mg/dL Cholesterol (<200) mg/dL LDL Cholesterol Direct (<100) mg/dL HDL Cholesterol (40-59) mg/dL PSA Screen < 0.1 (0.0-4.0) ng/mL TSH 3rd Generation 1.425 (0.358-3.74) uIU/mL Urine Color (Yellow) Urine Appearance (Clear) Urine pH (5.0-8.0) Ur Specific [place] (1.005-1.030) Urine Protein (Negative) Urine Glucose (UA) (Negative) Urine Ketones (Negative) Urine Occult Blood (Negative) Urine Nitrite (Negative) Urine Bilirubin (Negative) Urine Urobilinogen (0.2-1.0) Ur Leukocyte Esterase (Negative) Urine RBC (0-5) /hpf Urine WBC (0-5) /hpf Ur Epithelial Cells (0-5) /hpf Urine Bacteria (FEW) /hpf Urine Mucus (FEW) /hpf Urine Opiates Screen (NEGATIVE) Ur Buprenorphine Scrn (NEGATIVE) Ur Oxycodone Screen (NEGATIVE) Urine Methadone Screen (NEGATIVE) Ur Propoxyphene Screen (NEGATIVE) Ur Barbiturates Screen (NEGATIVE) Ur Tricyclics Screen (NEGATIVE) Ur Phencyclidine Scrn (NEGATIVE) Ur Amphetamine Screen (NEGATIVE) U Methamphetamines Scrn (NEGATIVE) U Benzodiazepines Scrn (NEGATIVE) U Cocaine Metab Screen (NEGATIVE) U Marijuana (THC) Screen (NEGATIVE) Mycoplasma pneumon IgM Negative (NEGATIVE) 05/25/18 05/25/18 05/25/18 Range/Units 20:55 21:54 21:54 WBC (4.23-9.07) K/mm3 RBC (4.63-6.08) M/mm3 Hgb (13.7-17.5) gm/L Hct (40.1-51.0) % MCV (79.0-92.2) fl MCH (25.7-32.2) pg MCHC (32.2-35.5) g/dl RDW Std Deviation (35.1-43.9) fL Plt Count (163-337) K/mm3 MPV (9.4-12.3) fl Neut % (Auto) (34.0-67.9) % Lymph % (Auto) (21.8-53.1) % [place] % (Auto) (5.3-12.2) % Eos % (Auto) (0.8-7.0) Baso % (Auto) (0.1-1.2) % Neut # (Auto) (1.78-5.38) K/mm3 Lymph # (Auto) (1.32-3.57) K/mm3 [place] # (Auto) (0.30-0.82) K/mm3 Eos # (Auto) (0.04-0.54) K/mm3 Baso # (Auto) (0.01-0.08) K/mm3 Manual Slide Review PT (9.5-12.1) SECONDS INR Sodium (136-145) mEq/L Potassium (3.5-5.1) mEq/L Chloride (98-107) mEq/L Carbon Dioxide (21-32) mEq/L Anion Gap (5-15) BUN (7-18) mg/dL Creatinine (0.7-1.3) mg/dL Est Cr Clr Drug Dosing mL/min Estimated GFR (MDRD) (>60) mL/min BUN/Creatinine Ratio (14-18) Glucose (74-106) mg/dL Calcium (8.5-10.1) mg/dL Magnesium (1.8-2.4) mg/dl Total Bilirubin (0.2-1.0) mg/dL AST (15-37) U/L ALT (16-63) U/L Alkaline Phosphatase (46-116) U/L Troponin I 0.117 H* (0.00-0.056) ng/mL C-Reactive Protein (<1.0) mg/dL Total Protein (6.4-8.2) g/dl Albumin (3.4-5.0) g/dl Globulin gm/dL Albumin/Globulin Ratio (1-2) Triglycerides (<150) mg/dL Cholesterol (<200) mg/dL LDL Cholesterol Direct (<100) mg/dL HDL Cholesterol (40-59) mg/dL PSA Screen (0.0-4.0) ng/mL TSH 3rd Generation (0.358-3.74) uIU/mL Urine Color Jeni H (Yellow) Urine Appearance Slt cloudy H (Clear) Urine pH 7.5 (5.0-8.0) Ur Specific [place] 1.015 (1.005-1.030) Urine Protein Negative (Negative) Urine Glucose (UA) Negative (Negative) Urine Ketones Negative (Negative) Urine Occult Blood Negative (Negative) Urine Nitrite Negative (Negative) Urine Bilirubin 1+ H (Negative) Urine Urobilinogen >=8.0 H (0.2-1.0) Ur Leukocyte Esterase Negative (Negative) Urine RBC 0-5 (0-5) /hpf Urine WBC 0-5 (0-5) /hpf Ur Epithelial Cells 0-5 (0-5) /hpf Urine Bacteria Moderate H (FEW) /hpf Urine Mucus Not seen (FEW) /hpf Urine Opiates Screen Negative (NEGATIVE) Ur Buprenorphine Scrn Negative (NEGATIVE) Ur Oxycodone Screen Negative (NEGATIVE) Urine Methadone Screen Negative (NEGATIVE) Ur Propoxyphene Screen Negative (NEGATIVE) Ur Barbiturates Screen Negative (NEGATIVE) Ur Tricyclics Screen Negative (NEGATIVE) Ur Phencyclidine Scrn Negative (NEGATIVE) Ur Amphetamine Screen Negative (NEGATIVE) U Methamphetamines Scrn Negative (NEGATIVE) U Benzodiazepines Scrn Negative (NEGATIVE) U Cocaine Metab Screen Negative (NEGATIVE) U Marijuana (THC) Screen Presumptive positive H (NEGATIVE) Mycoplasma pneumon IgM (NEGATIVE) 05/26/18 05/26/18 05/26/18 Range/Units 03:02 03:02 03:02 WBC 4.45 (4.23-9.07) K/mm3 RBC 3.56 L (4.63-6.08) M/mm3 Hgb 12.7 L (13.7-17.5) gm/L Hct 37.0 L (40.1-51.0) % MCV 103.9 H (79.0-92.2) fl MCH 35.7 H (25.7-32.2) pg MCHC 34.3 (32.2-35.5) g/dl RDW Std Deviation 59.2 H (35.1-43.9) fL Plt Count 55 L (163-337) K/mm3 MPV 9.2 L (9.4-12.3) fl Neut % (Auto) 59.8 (34.0-67.9) % Lymph % (Auto) 22.2 (21.8-53.1) % [place] % (Auto) 14.4 H (5.3-12.2) % Eos % (Auto) 2.5 (0.8-7.0) Baso % (Auto) 0.9 (0.1-1.2) % Neut # (Auto) 2.66 (1.78-5.38) K/mm3 Lymph # (Auto) 0.99 L (1.32-3.57) K/mm3 [place] # (Auto) 0.64 (0.30-0.82) K/mm3 Eos # (Auto) 0.11 (0.04-0.54) K/mm3 Baso # (Auto) 0.04 (0.01-0.08) K/mm3 Manual Slide Review Abnormal smear PT (9.5-12.1) SECONDS INR Sodium 135 L (136-145) mEq/L Potassium 3.9 (3.5-5.1) mEq/L Chloride 104 (98-107) mEq/L Carbon Dioxide 20 L (21-32) mEq/L Anion Gap 14.9 (5-15) BUN 6 L (7-18) mg/dL Creatinine 0.8 (0.7-1.3) mg/dL Est Cr Clr Drug Dosing 105.19 mL/min Estimated GFR (MDRD) > 60 (>60) mL/min BUN/Creatinine Ratio 7.5 L (14-18) Glucose 97 (74-106) mg/dL Calcium 8.1 L (8.5-10.1) mg/dL Magnesium 1.8 (1.8-2.4) mg/dl Total Bilirubin 5.4 H (0.2-1.0) mg/dL AST 74 H (15-37) U/L ALT 34 (16-63) U/L Alkaline Phosphatase 120 H (46-116) U/L Troponin I 0.119 H* (0.00-0.056) ng/mL C-Reactive Protein 0.9 (<1.0) mg/dL Total Protein 6.8 (6.4-8.2) g/dl Albumin 2.5 L (3.4-5.0) g/dl Globulin 4.3 gm/dL Albumin/Globulin Ratio 0.6 L (1-2) Triglycerides 57 (<150) mg/dL Cholesterol 66 (<200) mg/dL LDL Cholesterol Direct 35 (<100) mg/dL HDL Cholesterol 36.0 L (40-59) mg/dL PSA Screen (0.0-4.0) ng/mL TSH 3rd Generation (0.358-3.74) uIU/mL Urine Color (Yellow) Urine Appearance (Clear) Urine pH (5.0-8.0) Ur Specific [place] (1.005-1.030) Urine Protein (Negative) Urine Glucose (UA) (Negative) Urine Ketones (Negative) Urine Occult Blood (Negative) Urine Nitrite (Negative) Urine Bilirubin (Negative) Urine Urobilinogen (0.2-1.0) Ur Leukocyte Esterase (Negative) Urine RBC (0-5) /hpf Urine WBC (0-5) /hpf Ur Epithelial Cells (0-5) /hpf Urine Bacteria (FEW) /hpf Urine Mucus (FEW) /hpf Urine Opiates Screen (NEGATIVE) Ur Buprenorphine Scrn (NEGATIVE) Ur Oxycodone Screen (NEGATIVE) Urine Methadone Screen (NEGATIVE) Ur Propoxyphene Screen (NEGATIVE) Ur Barbiturates Screen (NEGATIVE) Ur Tricyclics Screen (NEGATIVE) Ur Phencyclidine Scrn (NEGATIVE) Ur Amphetamine Screen (NEGATIVE) U Methamphetamines Scrn (NEGATIVE) U Benzodiazepines Scrn (NEGATIVE) U Cocaine Metab Screen (NEGATIVE) U Marijuana (THC) Screen (NEGATIVE) Mycoplasma pneumon IgM (NEGATIVE) 05/26/18 05/26/18 05/26/18 Range/Units 03:02 09:43 15:30 WBC (4.23-9.07) K/mm3 RBC (4.63-6.08) M/mm3 Hgb (13.7-17.5) gm/L Hct (40.1-51.0) % MCV (79.0-92.2) fl MCH (25.7-32.2) pg MCHC (32.2-35.5) g/dl RDW Std Deviation (35.1-43.9) fL Plt Count (163-337) K/mm3 MPV (9.4-12.3) fl Neut % (Auto) (34.0-67.9) % Lymph % (Auto) (21.8-53.1) % [place] % (Auto) (5.3-12.2) % Eos % (Auto) (0.8-7.0) Baso % (Auto) (0.1-1.2) % Neut # (Auto) (1.78-5.38) K/mm3 Lymph # (Auto) (1.32-3.57) K/mm3 [place] # (Auto) (0.30-0.82) K/mm3 Eos # (Auto) (0.04-0.54) K/mm3 Baso # (Auto) (0.01-0.08) K/mm3 Manual Slide Review PT 16.8 H (9.5-12.1) SECONDS INR 1.55 Sodium (136-145) mEq/L Potassium (3.5-5.1) mEq/L Chloride (98-107) mEq/L Carbon Dioxide (21-32) mEq/L Anion Gap (5-15) BUN (7-18) mg/dL Creatinine (0.7-1.3) mg/dL Est Cr Clr Drug Dosing mL/min Estimated GFR (MDRD) (>60) mL/min BUN/Creatinine Ratio (14-18) Glucose (74-106) mg/dL Calcium (8.5-10.1) mg/dL Magnesium (1.8-2.4) mg/dl Total Bilirubin (0.2-1.0) mg/dL AST (15-37) U/L ALT (16-63) U/L Alkaline Phosphatase (46-116) U/L Troponin I 0.108 H* 0.114 H* (0.00-0.056) ng/mL C-Reactive Protein (<1.0) mg/dL Total Protein (6.4-8.2) g/dl Albumin (3.4-5.0) g/dl Globulin gm/dL Albumin/Globulin Ratio (1-2) Triglycerides (<150) mg/dL Cholesterol (<200) mg/dL LDL Cholesterol Direct (<100) mg/dL HDL Cholesterol (40-59) mg/dL PSA Screen (0.0-4.0) ng/mL TSH 3rd Generation (0.358-3.74) uIU/mL Urine Color (Yellow) Urine Appearance (Clear) Urine pH (5.0-8.0) Ur Specific [place] (1.005-1.030) Urine Protein (Negative) Urine Glucose (UA) (Negative) Urine Ketones (Negative) Urine Occult Blood (Negative) Urine Nitrite (Negative) Urine Bilirubin (Negative) Urine Urobilinogen (0.2-1.0) Ur Leukocyte Esterase (Negative) Urine RBC (0-5) /hpf Urine WBC (0-5) /hpf Ur Epithelial Cells (0-5) /hpf Urine Bacteria (FEW) /hpf Urine Mucus (FEW) /hpf Urine Opiates Screen (NEGATIVE) Ur Buprenorphine Scrn (NEGATIVE) Ur Oxycodone Screen (NEGATIVE) Urine Methadone Screen (NEGATIVE) Ur Propoxyphene Screen (NEGATIVE) Ur Barbiturates Screen (NEGATIVE) Ur Tricyclics Screen (NEGATIVE) Ur Phencyclidine Scrn (NEGATIVE) Ur Amphetamine Screen (NEGATIVE) U Methamphetamines Scrn (NEGATIVE) U Benzodiazepines Scrn (NEGATIVE) U Cocaine Metab Screen (NEGATIVE) U Marijuana (THC) Screen (NEGATIVE) Mycoplasma pneumon IgM (NEGATIVE) Med Orders - Current: Current Medications Acetaminophen (Tylenol) 650 mg PO Q4H PRN PRN Reason: Pain (Mild 1-3)/fever Apixaban (Eliquis) 2.5 mg PO BID [facility] Folic Acid (Folic Acid) 1 mg PO DAILY [facility] Last Admin: 05/26/18 10:15 Dose: 1 mg Furosemide (Lasix) 40 mg PO DAILY [facility] Hydralazine HCl (Apresoline) 20 mg IVPUSH Q4H PRN PRN Reason: Hypertension Sodium Chloride (Normal Saline) 1,000 mls @ 125 mls/hr IV ASDIRECTED [facility] Last Admin: 05/26/18 05:24 Dose: 125 mls/hr Lisinopril (Prinivil) 10 mg PO DAILY [facility] Last Admin: 05/26/18 10:15 Dose: 10 mg Lorazepam (Ativan) 2 mg IVPUSH Q4H PRN PRN Reason: Seizures Magnesium Sulfate (Pharmacy To Dose - Magnesium Replacement) 1 dose .XX ASDIRECTED [facility] Metoprolol Tartrate (Lopressor) 5 mg IVPUSH Q4H PRN PRN Reason: Tachycardia Morphine Sulfate (Morphine) 2 mg IVPUSH Q2H PRN PRN Reason: Pain (severe 7-10) Stop: 05/26/18 20:16 Last Admin: 05/26/18 04:00 Dose: 2 mg Multivitamins (Thera) 1 each PO BEDTIME [facility] Atorvastatin 20 Mg (TabOwn Med) 20 mg PO BEDTIME [facility] Last Admin: 05/25/18 21:51 Dose: 20 mg Ondansetron HCl (Zofran) 4 mg IVPUSH Q4H PRN PRN Reason: Nausea/Vomiting Ursodiol 250 Mg Tab 0 each PO BEDTIME [facility] Potassium Chloride (Pharmacy To Dose - Potassium Replacement) 1 dose .XX ASDIRECTED [facility] Prednisone (Prednisone) 40 mg PO WITHBREAKFAST [facility] Sodium Chloride (Saline Flush) 10 ml FLUSH ASDIRECTED PRN PRN Reason: Keep Vein Open Last Admin: 05/25/18 12:34 Dose: 10 ml Spironolactone (Aldactone) 25 mg PO BID [facility] Thiamine HCl (Vitamin B-1) 100 mg PO BEDTIME [facility] Discontinued Medications Aspirin (Aspirin) 324 mg PO ONETIME ONE Stop: 05/25/18 10:54 Last Admin: 05/25/18 12:34 Dose: Not Given Aspirin (Aspirin) 324 mg PO ONETIME ONE Stop: 05/25/18 14:05 Last Admin: 05/25/18 14:50 Dose: 324 mg Diphenhydramine HCl (Benadryl) 50 mg IVPUSH ONETIME ONE Stop: 05/25/18 15:59 Last Admin: 05/25/18 16:43 Dose: Not Given Enoxaparin Sodium (Lovenox) 120 mg SUBCUT ONETIME ONE Stop: 05/25/18 20:35 Last Admin: 05/25/18 21:42 Dose: Not Given Furosemide (Lasix) 20 mg PO DAILY [facility] Last Admin: 05/26/18 10:15 Dose: 20 mg Haloperidol Lactate (Haldol) 5 mg IM ONETIME ONE Stop: 05/25/18 15:59 Last Admin: 05/25/18 16:43 Dose: Not Given Hydromorphone HCl (Dilaudid) 0.5 mg IVPUSH ONETIME ONE Stop: 05/25/18 15:59 Last Admin: 05/25/18 16:43 Dose: Not Given Sodium Chloride (Normal Saline) 100 mls @ 60 mls/hr IV ASDIRECTED [facility] Last Admin: 05/25/18 13:54 Dose: 60 mls/hr Sodium Chloride (Normal Saline) 1,000 mls @ 100 mls/hr IV ASDIRECTED [facility] Iopamidol (Isovue-370 (76%)) 100 ml IVPUSH ONETIME ONE Stop: 05/25/18 13:40 Last Admin: 05/25/18 13:53 Dose: 100 ml Iopamidol (Isovue-370 (76%)) 100 ml IVPUSH ONETIME ONE Stop: 05/25/18 13:43 Last Admin: 05/25/18 15:27 Dose: Not Given Iopamidol (Isovue-300 (61%)) 125 ml IVPUSH ONETIME ONE Stop: 05/25/18 17:13 Last Admin: 05/25/18 17:26 Dose: 150 ml Regadenoson (Lexiscan) 0.4 mg IVPUSH ONETIME ONE Stop: 05/26/18 06:50 Last Admin: 05/26/18 07:49 Dose: 0.4 mg Sodium Chloride (Saline Flush) 10 ml FLUSH ONETIME ONE Stop: 05/25/18 13:40 Last Admin: 05/25/18 13:54 Dose: 10 ml - Exam General: Alert HEENT: Pupils Equal, Pupils Reactive, Scleral Icterus Neck: No JVD, No Thyromegaly GI/Abdominal Exam: Soft, No Abnormal Bruit, Distended, Hepatomegaly, Other. No : Guarding, Rigid, Rebound Back Exam: Decreased Range of Motion Extremities: Other Wound/Incisions: Other - Problem List Review Problem List Initiated/Reviewed/Updated: Yes - My Orders Last 24 Hours: My Active Orders 05/26/18 12:27 LORazepam [Ativan] 2 mg IVPUSH Q4H PRN Metoprolol Tartrate [Lopressor] 5 mg IVPUSH Q4H PRN hydrALAZINE [Apresoline] 20 mg IVPUSH Q4H PRN 05/26/18 12:29 Consult to Dietary [Consult to International Marketing Executive] [CONS] Routine 05/26/18 12:30 Magnesium Rep Pharmacy to Dose [Pharmacy to Dose - Magnesium Replacement] 1 dose .XX ASDIRECTED Potassium Rep Pharmacy to Dose [Pharmacy to Dose - Potassium Replacement] 1 dose .XX ASDIRECTED 05/26/18 13:35 Consult to Physical Therapy [PT Evaluation and Treatment] [CONS] Routine 05/26/18 21:00 Apixaban [Eliquis] 2.5 mg PO BID Multivitamins,Therapeutic [Thera] 1 each PO BEDTIME Patient's Own Medication [Ptom] 0 each PO BEDTIME Spironolactone [Aldactone] 25 mg PO BID Thiamine [Vitamin B-1] 100 mg PO BEDTIME 05/27/18 07:00 predniSONE 40 mg PO WITHBREAKFAST 05/27/18 09:00 Furosemide [Lasix] 40 mg PO DAILY - Plan Plan:: The patient was seen and examined at bed side in concert with the medical student. The assessment and plans were discussed and agreed upon with me. Jaundice/Hyperbilirubinemia - 2/2 Liver Cirrhosis Medical Non-Compliance - Missed or cancelled multiple appointment with GI in [place] Substance Abuse/Dependence - Still drinks ETOH despite awareness his liver disease was due to alcoholism - SA/Tele-psych consult Hx/o DVT/Thrombosis - He is not on anticoagulation due to chronic alcoholism (recommendation from Dr. 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 Updated her per request about Rafael diagnoses, test results, clinical status, treatment plan and discharge care plan. Overall prognosis is poor. He is medically non-compliant plus MELD score is 20 with an est 20% 3 month mortality.
[2018-05-26] MEDS: Apixaban 5 MG Tab PO SCH (20:34)
[2018-05-26] MEDS: Multivitamins,Therapeutic Tab PO SCH (20:34)
[2018-05-26] MEDS: Spironolactone 25 MG Tab PO SCH (20:34)
[2018-05-26] MEDS: Thiamine 100 MG Tab PO SCH (20:34)
[2018-05-26] MEDS: ATORVASTATIN 20 MG PO SCH (20:35)
[2018-05-26] MEDS ORDERED: URSODIOL 250 MG TAB PO SCH (21:00)
[2018-05-27] MEDS: Sodium Chloride 0.9% 1,000 ML IV SCH ×2 (04:00→12:16)
[2018-05-27] MEDS: predniSONE 20 MG Tab PO SCH (06:19)
[2018-05-27] MEDS: LISINOPRIL 10 MG PO SCH (08:19)
[2018-05-27] MEDS: Folic Acid 1 MG Tab**OWN MED PO SCH (08:20)
[2018-05-27] MEDS: FUROSEMIDE 20 MG PO SCH (08:20)
[2018-05-27] MEDS: Apixaban 5 MG Tab PO SCH ×2 (08:20→20:17)
[2018-05-27] MEDS: Spironolactone 25 MG Tab PO SCH ×2 (08:32→20:17)
--- NOTE | 2018-05-27 10:09 | CR ---
Chest: Two views of the chest were obtained. Comparison: Prior chest x-ray of 05/25/18. Heart size appears within normal limits. Mild tortuosity of the thoracic aorta is seen. Lungs are clear with no acute parenchymal change. Bony structures are unremarkable. Embolization coils are seen within the left upper abdomen. Impression: 1. Incidental findings. Nothing acute is seen on two-view chest x-ray. Diagnostic code #2
[2018-05-27] MEDS: URSODIOL 250 MG TAB PO SCH ×2 (12:16→20:18)
--- NOTE | 2018-05-27 14:48 | PCM.PN ---
- General Info Date of Service: 05/27/18 Admission Dx/Problem (Free Text): Admission Diagnosis/Problem Admission Diagnosis/Problem Chest pain Subjective Update: Follow Up Functional Status: Reports: Pain Controlled, Tolerating Diet, Ambulating, Urinating - Review of Systems General: Denies: Fever, Weakness, Fatigue, Malaise, Chills HEENT: Reports: No Symptoms Pulmonary: Denies: Shortness of Breath, Pleuritic Chest Pain, Cough, Wheezing Cardiovascular: Denies: Chest Pain, Palpitations, Dyspnea on Exertion, Edema, Lightheadedness Gastrointestinal: Denies: Abdominal Pain, Decreased Appetite, Nausea, Vomiting Genitourinary: Reports: No Symptoms Musculoskeletal: Reports: No Symptoms Skin: Reports: Jaundice. Denies: Cyanosis, Mottled, Pallor, Diaphoresis, Bruising, Pruritis, Rash Neurological: Denies: Confusion, Difficulty Walking, Weakness, Gait Disturbance Psychiatric: Denies: Confusion, Anxiety, Agitation, Hallucinations Systems Review Comment:: No significant overnight or acute issues. His INR is 1.55. His T. Bilirubin is now at 5.2. He reports no complaints this AM. - Patient Data Vitals - Most Recent: Last Vital Signs Temp 37.0 C 05/27/18 08:16 Pulse 58 L 05/27/18 08:16 Resp 18 05/27/18 08:16 BP 138/72 05/27/18 08:19 Pulse Ox 94 L 05/27/18 08:16 Weight - Most Recent: 123.604 kg I&O - Last 24 Hours: Intake & Output 05/26/18 05/27/18 05/27/18 22:59 06:59 14:59 Intake Total 1138 1900 Output Total 600 250 Balance 538 1650 Lab Results Last 24 Hours: Laboratory Results - last 24 hr 05/26/18 05/27/18 05/27/18 Range/Units 15:30 05:38 05:38 WBC 4.52 (4.23-9.07) K/mm3 RBC 3.56 L (4.63-6.08) M/mm3 Hgb 12.7 L (13.7-17.5) gm/L Hct 37.8 L (40.1-51.0) % MCV 106.2 H (79.0-92.2) fl MCH 35.7 H (25.7-32.2) pg MCHC 33.6 (32.2-35.5) g/dl RDW Std Deviation 60.1 H (35.1-43.9) fL Plt Count 61 L (163-337) K/mm3 MPV 10.0 (9.4-12.3) fl Neut % (Auto) 53.8 (34.0-67.9) % Lymph % (Auto) 28.1 (21.8-53.1) % Hinds % (Auto) 13.5 H (5.3-12.2) % Eos % (Auto) 2.9 (0.8-7.0) Baso % (Auto) 1.5 H (0.1-1.2) % Neut # (Auto) 2.43 (1.78-5.38) K/mm3 Lymph # (Auto) 1.27 L (1.32-3.57) K/mm3 [place] # (Auto) 0.61 (0.30-0.82) K/mm3 Eos # (Auto) 0.13 (0.04-0.54) K/mm3 Baso # (Auto) 0.07 (0.01-0.08) K/mm3 Manual Slide Review Abnormal smear PT (9.5-12.1) SECONDS INR Sodium 134 L (136-145) mEq/L Potassium 3.8 (3.5-5.1) mEq/L Chloride 104 (98-107) mEq/L Carbon Dioxide 21 (21-32) mEq/L Anion Gap 12.8 (5-15) BUN 5 L (7-18) mg/dL Creatinine 0.7 (0.7-1.3) mg/dL Est Cr Clr Drug Dosing 120.22 mL/min Estimated GFR (MDRD) > 60 (>60) mL/min BUN/Creatinine Ratio 7.1 L (14-18) Glucose 82 (74-106) mg/dL Calcium 8.0 L (8.5-10.1) mg/dL Magnesium 1.8 (1.8-2.4) mg/dl Total Bilirubin 5.2 H (0.2-1.0) mg/dL AST 64 H (15-37) U/L ALT 32 (16-63) U/L Alkaline Phosphatase 114 (46-116) U/L Troponin I 0.114 H* (0.00-0.056) ng/mL C-Reactive Protein 0.8 (<1.0) mg/dL Total Protein 6.6 (6.4-8.2) g/dl Albumin 2.5 L (3.4-5.0) g/dl Globulin 4.1 gm/dL Albumin/Globulin Ratio 0.6 L (1-2) 05/27/18 Range/Units 05:38 WBC (4.23-9.07) K/mm3 RBC (4.63-6.08) M/mm3 Hgb (13.7-17.5) gm/L Hct (40.1-51.0) % MCV (79.0-92.2) fl MCH (25.7-32.2) pg MCHC (32.2-35.5) g/dl RDW Std Deviation (35.1-43.9) fL Plt Count (163-337) K/mm3 MPV (9.4-12.3) fl Neut % (Auto) (34.0-67.9) % Lymph % (Auto) (21.8-53.1) % [place] % (Auto) (5.3-12.2) % Eos % (Auto) (0.8-7.0) Baso % (Auto) (0.1-1.2) % Neut # (Auto) (1.78-5.38) K/mm3 Lymph # (Auto) (1.32-3.57) K/mm3 [place] # (Auto) (0.30-0.82) K/mm3 Eos # (Auto) (0.04-0.54) K/mm3 Baso # (Auto) (0.01-0.08) K/mm3 Manual Slide Review PT 16.3 H (9.5-12.1) SECONDS INR 1.51 Sodium (136-145) mEq/L Potassium (3.5-5.1) mEq/L Chloride (98-107) mEq/L Carbon Dioxide (21-32) mEq/L Anion Gap (5-15) BUN (7-18) mg/dL Creatinine (0.7-1.3) mg/dL Est Cr Clr Drug Dosing mL/min Estimated GFR (MDRD) (>60) mL/min BUN/Creatinine Ratio (14-18) Glucose (74-106) mg/dL Calcium (8.5-10.1) mg/dL Magnesium (1.8-2.4) mg/dl Total Bilirubin (0.2-1.0) mg/dL AST (15-37) U/L ALT (16-63) U/L Alkaline Phosphatase (46-116) U/L Troponin I (0.00-0.056) ng/mL C-Reactive Protein (<1.0) mg/dL Total Protein (6.4-8.2) g/dl Albumin (3.4-5.0) g/dl Globulin gm/dL Albumin/Globulin Ratio (1-2) Maxim Results Last 24 Hours: Microbiology 05/25/18 21:54 Streptococcus pneumoniae Antigen (M - Final Urine Med Orders - Current: Current Medications Acetaminophen (Tylenol) 650 mg PO Q4H PRN PRN Reason: Pain (Mild 1-3)/fever Apixaban (Eliquis) 2.5 mg PO BID [facility] Last Admin: 05/27/18 08:20 Dose: 2.5 mg Folic Acid (Folic Acid) 1 mg PO DAILY [facility] Last Admin: 05/27/18 08:20 Dose: 1 mg Furosemide (Lasix) 40 mg PO DAILY [facility] Last Admin: 05/27/18 08:20 Dose: 40 mg Hydralazine HCl (Apresoline) 20 mg IVPUSH Q4H PRN PRN Reason: Hypertension Sodium Chloride (Normal Saline) 1,000 mls @ 125 mls/hr IV ASDIRECTED [facility] Last Admin: 05/27/18 12:16 Dose: 125 mls/hr Lisinopril (Prinivil) 10 mg PO DAILY [facility] Last Admin: 05/27/18 08:19 Dose: 10 mg Lorazepam (Ativan) 2 mg IVPUSH Q4H PRN PRN Reason: Seizures Magnesium Sulfate (Pharmacy To Dose - Magnesium Replacement) 1 dose .XX ASDIRECTED [facility] Metoprolol Tartrate (Lopressor) 5 mg IVPUSH Q4H PRN PRN Reason: Tachycardia Multivitamins (Thera) 1 each PO BEDTIME [facility] Last Admin: 05/26/18 20:34 Dose: 1 each Atorvastatin 20 Mg (TabOwn Med) 20 mg PO BEDTIME [facility] Last Admin: 09/11/18 20:35 Dose: 20 mg Ondansetron HCl (Zofran) 4 mg IVPUSH Q4H PRN PRN Reason: Nausea/Vomiting Phytonadione (Aquamephyton) 10 mg SUBCUT DAILY [facility] Stop: 05/28/18 09:01 Last Admin: 05/27/18 08:19 Dose: 10 mg Potassium Chloride (Pharmacy To Dose - Potassium Replacement) 1 dose .XX ASDIRECTED [facility] Prednisone (Prednisone) 40 mg PO WITHBREAKFAST [facility] Last Admin: 05/27/18 06:19 Dose: 40 mg Sodium Chloride (Saline Flush) 10 ml FLUSH ASDIRECTED PRN PRN Reason: Keep Vein Open Last Admin: 05/25/18 12:34 Dose: 10 ml Spironolactone (Aldactone) 25 mg PO BID [facility] Last Admin: 05/27/18 08:32 Dose: 25 mg Thiamine HCl (Vitamin B-1) 100 mg PO BEDTIME [facility] Last Admin: 05/26/18 20:34 Dose: 100 mg Ursodiol (Candelaria 250) 250 mg PO BID [facility] Last Admin: 05/27/18 12:16 Dose: 250 mg Discontinued Medications Aspirin (Aspirin) 324 mg PO ONETIME ONE Stop: 05/25/18 10:54 Last Admin: 05/25/18 12:34 Dose: Not Given Aspirin (Aspirin) 324 mg PO ONETIME ONE Stop: 05/25/18 14:05 Last Admin: 05/25/18 14:50 Dose: 324 mg Diphenhydramine HCl (Benadryl) 50 mg IVPUSH ONETIME ONE Stop: 05/25/18 15:59 Last Admin: 05/25/18 16:43 Dose: Not Given Enoxaparin Sodium (Lovenox) 120 mg SUBCUT ONETIME ONE Stop: 05/25/18 20:35 Last Admin: 05/25/18 21:42 Dose: Not Given Furosemide (Lasix) 20 mg PO DAILY [facility] Last Admin: 05/26/18 10:15 Dose: 20 mg Haloperidol Lactate (Haldol) 5 mg IM ONETIME ONE Stop: 05/25/18 15:59 Last Admin: 05/25/18 16:43 Dose: Not Given Hydromorphone HCl (Dilaudid) 0.5 mg IVPUSH ONETIME ONE Stop: 05/25/18 15:59 Last Admin: 05/25/18 16:43 Dose: Not Given Sodium Chloride (Normal Saline) 100 mls @ 60 mls/hr IV ASDIRECTED [facility] Last Admin: 05/25/18 13:54 Dose: 60 mls/hr Sodium Chloride (Normal Saline) 1,000 mls @ 100 mls/hr IV ASDIRECTED [facility] Iopamidol (Isovue-370 (76%)) 100 ml IVPUSH ONETIME ONE Stop: 05/25/18 13:40 Last Admin: 05/25/18 13:53 Dose: 100 ml Iopamidol (Isovue-370 (76%)) 100 ml IVPUSH ONETIME ONE Stop: 05/25/18 13:43 Last Admin: 05/25/18 15:27 Dose: Not Given Iopamidol (Isovue-300 (61%)) 125 ml IVPUSH ONETIME ONE Stop: 05/25/18 17:13 Last Admin: 05/25/18 17:26 Dose: 150 ml Morphine Sulfate (Morphine) 2 mg IVPUSH Q2H PRN PRN Reason: Pain (severe 7-10) Stop: 05/26/18 20:16 Last Admin: 05/26/18 04:00 Dose: 2 mg Ursodiol 250 Mg Tab 0 each PO BEDTIME [facility] Last Admin: 05/26/18 20:36 Dose: 1 each Regadenoson (Lexiscan) 0.4 mg IVPUSH ONETIME ONE Stop: 05/26/18 06:50 Last Admin: 05/26/18 07:49 Dose: 0.4 mg Sodium Chloride (Saline Flush) 10 ml FLUSH ONETIME ONE Stop: 05/25/18 13:40 Last Admin: 05/25/18 13:54 Dose: 10 ml - Exam General: Alert, Oriented, Cooperative, No Acute Distress, Other (No asterixis) HEENT: Pupils Equal, Pupils Reactive, EOMI, Mucous Membr. Moist/[place], Scleral Icterus Neck: Supple, Trachea Midline, No JVD Lungs: Normal Respiratory Effort, Decreased Breath Sounds Cardiovascular: Regular Rate, Regular Rhythm GI/Abdominal Exam: Normal Bowel Sounds, Soft, Non-Tender, No Abnormal Bruit, No Mass, Distended, Hepatomegaly (Male) Exam: Deferred Back Exam: Normal Inspection, Decreased Range of Motion Extremities: Normal Inspection, Normal Range of Motion, Non-Tender, No Pedal Edema, Normal Capillary Refill Peripheral Pulses: 2+: Dorsalis Pedis (L), Dorsalis Pedis (R) Skin: Warm, Dry, Intact Neurological: No New Focal Deficit Psy/Mental Status: Alert, Normal Affect, Normal Mood. No: Anxious, Depressed, Agitated, Homicidal Ideation, Hallucinations, Withdrawal Symptoms - Problem List Review Problem List Initiated/Reviewed/Updated: Yes - My Orders Last 24 Hours: My Active Orders 05/26/18 18:54 Consult for Substance Abuse [CONS] Routine Consult to Physician [CONS] Routine 05/26/18 18:55 Notify Provider Consults [RC] ASDIRECTED 05/26/18 19:00 Phytonadione [AquaMephyton] 10 mg SUBCUT DAILY 05/26/18 21:00 Apixaban [Eliquis] 2.5 mg PO BID Multivitamins,Therapeutic [Thera] 1 each PO BEDTIME Spironolactone [Aldactone] 25 mg PO BID Thiamine [Vitamin B-1] 100 mg PO BEDTIME 05/27/18 07:00 predniSONE 40 mg PO WITHBREAKFAST 05/27/18 08:33 Consult to Case Management/[employer] [CONS] Routine 05/27/18 09:00 Furosemide [Lasix] 40 mg PO DAILY 05/27/18 12:00 Ursodiol [Candelaria 250] 250 mg PO BID - Plan Plan:: Assessment/Plan: Acute: ETOH Liver Cirrhosis w/ Small Abdominal Ascites * States he has previously been diagnosed with cirrhosis, likely alcohol-induced * History of alcoholism * EtOH negative on admission * Admits he is still drinking; amount unclear * Hepatitis panel pending * CT Abdomen: * 1. Findings of cirrhosis within the liver. Probable focal fatty sparing next to the gallbladder * 2. Small amount of ascites * 3. Right abdominal wall hernia with no findings of bowel incarceration * Maddrey's discriminate function for alcoholic hepatitis * 32.7 = poor prognosis * Patient may benefit from glucocortioid therapy - continue prednisone * Meld score * 20 points * 19.6% 3 month mortality Jaundice/Hyperbilirubinemia, improving * Total Bilirubin 6 on admission --> 5.4--> now 5.2 * Abd CT: nothing acute * Abd U/S pending * Likely contributing to altered mental status * Continue Prednisone and Ursodiol Thrombocytopenia * Most likely 2/2 hepatic disease * Plt 55--> now 62 Substance Abuse * Carries a hx/o ETOH and Marijuana Use/Dependence * Still drinks ETOH despite awareness his liver disease was due to alcoholism * UDS pos for THC * He wants to get better * Counseled on illicit drug use * SA/Tele-psych consult Laceration to RLE, Stable * 3-4" * Mildly increased warmth and edema to the lower leg * No purulent discharge from wound * PT for wound care Medical Non-Compliance - Missed or cancelled multiple appointment with GI in [place] Resolved: S/p Elevated Troponin * 05/25 --> 0.125, 0.118, 0.117; 05/26 --> 0.119--> 0.108--> 0.114 * CKMB negative * Lexiscan negative * Likely due to renal insufficiency S/p Altered Mental Status * Poor historian, seems confused/has difficulty when asked questions * Ammonia 32 - no hepatic encephalopathy * Drug screen presumptive positive for marijuana; all others negative * Likely due to elevated bilirubin S/p Elevated D-Dimer 2/2 Chronic Liver Disease (He is Hyperfibrinolytic state) * 4.03 on admission * Angiogram--> no acute abnormal findings; no obvious filling defect * Venous doppler LE * Mild edema in lower extremities * Hold Lovenox/ASA d/t thrombocytopenia - Eliquis for DVT prophylaxis S/p SOB and Cough * Mycoplasma and Strep pneumoniae Antigens were both negative * CXR: no acute findings * Repeat CXR in 1 day * Afebrile, nonproductive * O2 98% on RA Chronic: HTN HLD * Lipid panel WNL CHF, unknown EF * 2+ pitting edema of R leg only * SOB, orthopnea * BNP 253 * Takes Lasix at home--> continue * ECHO done today H/o Prostate CA * PSA <0.1 Hx/o DVT/Thrombosis - He is not on anticoagulation due to chronic alcoholism (recommendation from Dr. Springer, [facility] in [facility] when he was hospitalized in [place] back in January) - He is high risk for DVT; will anti-coagulate him but not after discharge until his alcoholism is completely under control Plan: He is clinically stable Continue current treatment Discontinue IVF Routine AM labs PT/INR in AM DVT Prophylaxis: Eliquis (Liver Cirrhosis patient are in hypercoagulable state GI Prophylaxis: Protonix Ambulate ad antwon Other orders as indicated above Code Status: Full code; sister is POA PCP: Unknown, states "I see everyone" at [facility] in [place]; need to establish local PCP Spoke to his sister via phone. Updated her about his test results and clinical progress. LOS anticipate > 96 hrs pending chemical rehab placement
[2018-05-27] MEDS: Multivitamins,Therapeutic Tab PO SCH (20:17)
[2018-05-27] MEDS: Thiamine 100 MG Tab PO SCH (20:17)
[2018-05-27] MEDS: ATORVASTATIN 20 MG PO SCH (20:18)
--- NOTE | 2018-05-27 20:44 | CONS ---
CONSULTING PHYSICIAN: Haim Morales MD DATE OF CONSULTATION: 05/27/2018 PSYCHIATRIC EVALUATION This is a 60-minute inpatient clinical event. IDENTIFICATION: The patient is a 58-year-old male, who was admitted to the Med/Surg Unit at [facility]. He is seen for psychiatric evaluation. CHIEF COMPLAINT: "I couldn't breathe. Anxiety attack." HISTORY OF PRESENT ILLNESS: The patient is a 58-year-old male, who reports he has been struggling with physical health issues. He states that complicating his clinical picture is the fact that he has been drinking "about 5 or 6 beers a day." He states "I messed up my liver" because I have been drinking so much. He also reports that he has a history of pulmonary embolisms, they have been multiple in nature. He states that he is being medically worked up, and at this point in time, he is trying to get resources to help with his drinking. He states his sister is concerned about him, staff is reporting that they want to explore treatment options for the patient when he is medically stabilized. For his part, the patient is denying any psychiatric issues in terms of depression. He states he has anxiety because he did not know what was going on with him, but he is feeling better now. His main issue on the unit is that he is just not sleeping well, but he denies being suicidal or homicidal. He denies any psychotic, delusional, or paranoid symptoms. He states his mood is "good" overall. MEDICATIONS: At time of admission, none. ALLERGIES: The patient is allergic to wheat dust. PAST MEDICAL HISTORY: 1. Status post PE x3. 2. Status post prostate cancer. 3. History of cirrhosis of the liver. REVIEW OF SYSTEMS: Aside from , pulmonary, and GI, all other major organ systems are negative at this point in time for acute difficulties or complications. FAMILY PSYCHIATRIC HISTORY AND CD HISTORY: The patient denies. PAST PSYCHIATRIC HISTORY AND CD HISTORY: The patient is denying. SOCIAL HISTORY: The patient is living in [place], [place]. He lives by himself in the community. States he was , but his " last year." He states he has a daughter, who lives over in [place]. 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 MENTAL STATUS EXAM: The patient is a 58-year-old male, who is Hid[place] on his father's side and Arikara on his mother's side, in no apparent distress. Speech is of regular rate and rhythm. The patient is cognitively oriented x3. Psychomotor activity is within normal limits. There are no abnormal motor movements or tics observed. Gait and station are not observed. This patient is seated during the course of the interview. Mood is "good." Affect is cooperative overall for the purposes of the intake interview and full in range. There is no behavioral or stated evidence of acute suicidal or homicidal ideation or acute psychotic, delusional, or paranoid symptoms. Thought processes are organized overall and there are no acute manic symptoms or loose associations evident. Judgment and insight appear unimpaired overall. May be somewhat poor in terms of his understanding the severity of his likely alcohol dependence. Motivation for help appears fair to good. VITALS: At time of admission; 138/72, 58, 18, 98.6 degrees. IMPRESSION: [place] I: 1. Alcohol dependence, F10.20. 2. Anxiety disorder, not otherwise specified, F41.9. [place] II: None. [place] III: 1. Status post pulmonary embolism x3. 2. Status post history of prostate cancer. 3. History of cirrhosis of the liver. 4. Possible history of loss of hearing. [place] IV: Severe. [place] V: 55 to 60. PLAN: 1. Sobriety. 2. Folic acid 1 mg daily. 3. Thiamine 100 mg daily. 4. Topamax 25 mg b.i.d. 5. Seroquel 25 mg at bedtime while the patient is on the unit to help with clarity of thought, sleep initiation, and maintenance of anxiety reduction. 6. AA rep to visit the patient while on the unit. 7. Pastoral guidance. 8. Other medications as dosed and prescribed for the patient's medical issues per primary inpatient medical treatment team. 9. Recommend transferring the patient to inpatient chemical dependency treatment when medically stabilized. 10.We will continue to follow up with the patient on an as-needed basis while he remains on the inpatient medical unit. 11.We will follow up with the patient sooner if any complications in the interim. 12.Crisis plan is in place. MMODAL /[id number]
[2018-05-28] MEDS: predniSONE 20 MG Tab PO SCH (06:33)
[2018-05-28] MEDS: Spironolactone 25 MG Tab PO SCH (09:11)
[2018-05-28] MEDS: Apixaban 5 MG Tab PO SCH (09:12)
[2018-05-28] MEDS: Folic Acid 1 MG Tab**OWN MED PO SCH (09:13)
[2018-05-28] MEDS: FUROSEMIDE 20 MG PO SCH (09:13)
[2018-05-28] MEDS: LISINOPRIL 10 MG PO SCH (09:14)
[2018-05-28] MEDS: URSODIOL 250 MG TAB PO SCH (09:15)
--- NOTE | 2018-05-28 11:57 | CONS ---
CONSULTING PHYSICIAN: Delonte Colon LAC DATE OF CONSULTATION: 05/28/2018 TIME: 10:44 a.m. REASON FOR CONSULTATION: The patient is a 58-year-old male, admitted to [facility] on 05/25/2018. An alcohol and drug consultation were requested by his medical treatment team. SOURCE OF INFORMATION: Hospital records, staff report, background research, and prescription drug monitoring report, and JAIME was signed to consult with his sister, Tom Magallon. HISTORY OF PRESENT ILLNESS: The patient is a 58-year-old male with past medical history of HTN, HLD, CHF, and history of prostate cancer. He presented to ER with shortness of breath, heartburn, and cough. The patient was subsequently diagnosed with hepatic encephalopathy, elevated troponin, D-dimer, and bilirubin secondary to alcohol use disorder, severe. The patient also presented with positive lab reports for THC. PSYCHOSOCIAL HISTORY: The patient reports that he was born and raised in [place], [place], by his biological parents who are both . His mother in 1997 and his father 4 years ago along with multiple other members of his family. His significant other of 15 years' last year and he reports that he and his significant other raised her children up until her and then the children were taken from him and placed with blood relatives. Since that time, he has struggled with grief, pain, loss, and loneliness, and appears to be self medicating with alcohol and THC. The patient reports that he has 6 brothers and 5 sisters, and that he is on speaking terms with only 1 sister, Tom. 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 The patient reports that 4 years ago, he was in a work related oilfield accident and injured his knees causing him to be unable to work strenuous jobs. He reports that he maintains a room in [place], [place], where his significant other's children live so he can visit them. However, [place] with his substance abuse and he has recently moved to [facility] to help with the cattle and to achieve sobriety. MENTAL HEALTH HISTORY: The patient denies a history of mental health disorders. However, he is currently displaying symptoms of depression, which seems to be exacerbated by significant loss. The patient also reports anxiety. A referral for a psychiatric evaluation has been made to Dr. Morales. SUBSTANCE ABUSE HISTORY: Tobacco: The patient gives conflicting information regarding tobacco use. The patient is reporting that he does not smoke cigarettes, however, on his initial H and P, it states that he was never a smoker and then it states that he has had 1 year of tobacco use and smoked a half a pack daily. Alcohol: The patient reports that he began drinking alcohol at a young age, as there was significant alcohol abuse within his family and peer group. He states in his early years of drinking, he could drink a case of beer per occasion. During his adult years, both he and his significant other had serious drinking issues that prompted social service involvement with the children. Both he and his significant other were to go to substance abuse treatment, but they never did. During his 30s and 40s, the patient reports that he could drink daily anywhere from a 12 to a case of beer. As the patient's alcoholism progressed, the patient has been unable to drink in large quantities, rather he can drink 3 beers and become intoxicated. He waits until the intoxication weans and then he will have 3 more beers and this is a regular pattern throughout the day. The patient reports that in the past, he has been drinking instead of eating. He also reports that the last time he drank excessively was when he went to the [facility], and after that, he decided to try to achieve sobriety. The patient reports that he is afraid to go cold turkey and not have any alcohol in his system because he has seen withdrawals kill some of his family and friends. He is reporting that he experiences moderate withdrawals, pass outs and blackouts. He states that he has had 1 previous alcohol and drug evaluation in the past and has 1 DUI and 2 possession charges on his criminal record. The patient reports that he has never had any substance abuse education or treatment. The patient also reports that most everyone in his family has a problem with drugs or alcohol. His father at age 56 of liver cirrhosis. Cannabis: The patient reports that he has smoked cannabis all his life since a teenager. However, he prefers alcohol. He does admit to smoking only "occasionally." However, on his H and P, he stated that he smokes marijuana or hashish daily. When asked about the discrepancy, the patient reports that he "does not smoke that much," however, his cousin brings him medical marijuana from [place] on a weekly basis. At this point, it appears that the patient may be smoking less for recreation and more for perceived physical and emotional pain. However, further assessment is needed. The patient equivocates with regard to his cannabis use, making it difficult to ascertain just how much he is using on a daily basis. The patient denies all other illicit drug use. A prescription drug monitoring report was pulled with no remarkable results. DIAGNOSES: The patient meets DSM-5 criteria for the following diagnoses: 1. F10.20, alcohol use disorder, severe. 2. F10.239, alcohol withdrawal without perceptual disturbance, comorbid. 3. F15.200, tobacco use disorder, severe (in sustained full remission rule out). 4. F12.20, cannabis use disorder, severe. ASAM DIMENSIONS: Dimension 1: Score 2+. The patient has some difficulty tolerating and coping with withdrawal discomfort. He may drink to severe intoxication, however, responds to support and treatment. Dimension 2: Score 3. The patient tolerates and graciela with physical problems, however, he has poor general health. The patient appears to be fragile at this time and needs to be medically stabilized. The patient suffers from multiple medical conditions that are exacerbated by his continued alcohol use. Dimension 3: Score 2. The patient has difficulty with impulse control and lacks coping skills. The patient has difficulty functioning in significant life areas and displays symptoms of depression and anxiety complicated by grief and loss. A referral for Dr. Morales was made. Dimension 4: Score 3. The patient appears to be in denial of his addiction and verbalizes that he wants to stop, however, he is unable to achieve sobriety on his own. Dimension 5: Score 4. The patient presents in stage IV alcoholism and is unable to control his need to drink. Dimension 6: Score 3+. The patient verbalizes that he is alienated from most of his family with the exception of his sister, Tom, who is desperate for intervention and no longer knows how to help her brother by collateral report. The patient lives in a small 1 room, either in a hotel or at a friend's. He has lost all of his significant other's and has basically minimal social support. ASSESSMENT SUMMARY: Client is a 58-year-old male presenting with stage IV chronic alcohol use disorder, severe, manifesting with multiple medical and emotional consequences including hepatic encephalopathy, congestive heart failure, history of prostate cancer, hypertension, hyperlipidemia, thrombocytopenia, and withdrawals that require hospitalization. The patient is suffering from family alienation, depression, anxiety, remorse, resentment, complicated by grief and loss. The patient meets ASAM criteria for a level 3.7, medically managed intensive inpatient treatment, and JAIME was signed to consult with his sister, oTm Magallon. We discussed that because of his fragile medical and emotional state, committing the patient to the [facility] may be too traumatic at this point. There is a [facility] facility in [place] that may be more well suited to this patient and the patient's sister agreed that Delonte Colon LAC would arrange that pathway through the [facility] for continued care at the [place] facility. A referral was given to both the patient and his sister for continued care and assistance with admission to the [facility] in [place], [place], with Delonte Colon LAC at [facility]. Delonte Colon LAC will be contacting the [facility] on , 07/28/2018, to arrange for continued care for this patient. The patient has signed all necessary ROIs to assist with this placement process. RECOMMENDATION: The patient meets ASAM criteria for a level 3.7, medically managed intensive inpatient treatment. [facility] will be making arrangements for continued care at the [facility] in [place] post discharge. The patient and his sister have been given a referral sheet for [facility]. MMJOSSELINE /[id number]
--- NOTE | 2018-05-28 16:44 | PCM.DCSUM1 ---
Discharge Summary - Hospital Course HPI Initial Comments: 58-year-old male presents for evaluation treatment shortness of breath. Patient is a very historian. Apparently he's had shortness of breath for the last 4 days. He states it is worse with exertion. When initially asked if he has any chest pain he responded with "I don't know "he then admitted to having some pain throughout his entire chest. He states that he felt lightheaded but this was from anxiety tachycardia had on Friday. He reports he has been coughing and has had some productive sputum. No syncope. He did have a bloody nose last night. It sounds like he has a gash to his right leg which she's had for several weeks from mowing the lawn. Open. This is causing some pain to his legs. No primary care provider. Patient has a history of PE blood clots. He is not currently on any blood thinners and has not been on any for several years. Reports it was several years ago that he had the blood clot to his lungs. Diagnosis: Stroke: No - Discharge Data Discharge Date: 05/28/18 (ADMIT 05/25/18) Discharge Disposition: Home, Self-Care 01 Condition: Good - Discharge Diagnosis/Problem(s) (1) HTN (hypertension) SNOMED Code(s): 99989278 ICD Code: I10 - ESSENTIAL (PRIMARY) HYPERTENSION Status: Chronic Priority : Medium Current Visit: Yes Qualifiers: Hypertension type: unspecified Qualified Code(s): I10 - Essential (primary ) hypertension (2) HLD (hyperlipidemia) SNOMED Code(s): 69627416 ICD Code: E78.5 - HYPERLIPIDEMIA, UNSPECIFIED Status: Chronic Priority: Medium Current Visit: Yes Qualifiers: Hyperlipidemia type: unspecified Qualified Code(s): E78.5 - Hyperlipidemia , unspecified (3) CHF (congestive heart failure) SNOMED Code(s): 52795836 ICD Code: I50.9 - HEART FAILURE, UNSPECIFIED Status: Chronic Priority: Medium Current Visit: Yes Qualifiers: Heart failure type: unspecified Heart failure chronicity: unspecified Qualified Code(s): I50.9 - Heart failure, unspecified (4) Thrombocytopenia SNOMED Code(s): 888292137 ICD Code: D69.6 - THROMBOCYTOPENIA, UNSPECIFIED Status: Acute Priority: Medium Current Visit: Yes (5) SOB (shortness of breath) SNOMED Code(s): 261555807 ICD Code: R06.02 - SHORTNESS OF BREATH Status: Acute Priority: High Current Visit: Yes (6) Elevated troponin SNOMED Code(s): 372869190, 179790415, 832419742 ICD Code: R74.8 - ABNORMAL LEVELS OF OTHER SERUM ENZYMES Status: Acute Priority: High Current Visit: Yes (7) Elevated d-dimer SNOMED Code(s): 442474734 ICD Code: R79.89 - OTHER SPECIFIED ABNORMAL FINDINGS OF BLOOD CHEMISTRY Status: Acute Priority: High Current Visit: Yes (8) Elevated bilirubin SNOMED Code(s): 084098200 ICD Code: R17 - UNSPECIFIED JAUNDICE Status: Acute Priority: High Current Visit: Yes (9) Laceration of right lower leg SNOMED Code(s): 165955208 ICD Code: S81.811A - LACERATION W/O FOREIGN BODY, RIGHT LOWER LEG, INIT ENCNTR Status: Acute Priority: Medium Current Visit: Yes Qualifiers: Encounter type: subsequent encounter Qualified Code(s): S81.811D - Laceration without foreign body, right lower leg, subsequent encounter (10) History of prostate cancer SNOMED Code(s): 763254928 ICD Code: Z85.46 - PERSONAL HISTORY OF MALIGNANT NEOPLASM OF PROSTATE Status: Chronic Priority: Medium Current Visit: Yes (11) Hepatic encephalopathy SNOMED Code(s): 65509880 ICD Code: K72.90 - HEPATIC FAILURE, UNSPECIFIED WITHOUT COMA Status: Acute Priority: High Current Visit: Yes - Patient Summary/Data Operative Procedure(s) Performed: none Complications: none Consults: Consultations 05/25/18 20:33 Consult to Pulmonary Rehabilitation [CONS] Routine 05/26/18 12:29 Consult to Dietary [Consult to Otr Flatbed Driver] [CONS] Routine 05/26/18 13:35 Consult to Physical Therapy [PT Evaluation and Treatment] [CONS] Routine 05/26/18 18:54 Consult for Substance Abuse [CONS] Routine Consult to Physician [CONS] Routine 05/27/18 08:33 Consult to Case Management/Market Risk Manager [CONS] Routine Labs Pending at D/C: none Recommended Follow-up Testing/Procedures: Recommend follow up CBC, Mg, PT/INR and CMP in 1 week with PCP Make sure keep appointment with [facility] Colon outpatient as scheduled Recommend GI visit for follow up appointment after discharge Planned Operative Procedure(s) after DC: none Hospital Course: Assessment/Plan: Acute: 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 Findings of cirrhosis within the liver. Probable focal fatty sparing next to the gallbladder * 2. Small amount of ascites * 3. Right abdominal wall hernia with no findings of bowel incarceration * Maddrey's discriminate function for alcoholic hepatitis * 32.7 = poor prognosis * Patient may benefit from glucocortioid therapy - continue prednisone * Meld score * 20 points * 19.6% 3 month mortality * Previous History from [place]: * Abdominal/Pelvic CT 10/16/2016: Gastric varices, coil embolization of coronary vein, posterior gastric vein, and short gastric veins. Obliteration of the large left splenorenal shunt. Partial occlusive thrombus within the SMV. Minimal eccentric thrombus within the portal vein proximally. * He was referred to [facility] in [place] for further evaluation. * 11/28/2016 note: Patient underwent balloon retrograde transvenous obliteration 2/2 gastric varices. On follow up appointment, he developed PVT that extended to the SMV. * Patient did not follow up with GI and on "multiple occasions he canceled his appointment". * His case was referred to Dr. Springer, Melting Supervisor in [facility] and was recommended against anticoagulating him due to his hx/o chronic alcohol use/dependence. * No documentation to confirm he had liver biopsy. Jaundice/Hyperbilirubinemia, improving * Total Bilirubin 6 on admission --> 5.4--> 5.2--> 4.5 * Likely contributing to altered mental status * Abd CT: nothing acute * Abd U/S: * 1. Very irregular echo pattern within the liver most likely due to fatty infiltration and change from cirrhosis. Slight focal fatty sparing is seen next to the gallbladder. * 2. Left renal cyst. * 3. Small amount of ascites. * 4. Aorta and pancreas are poorly seen. Other portions of the abdominal ultrasound show no discrete abnormality. * Continue Prednisone and Ursodiol Thrombocytopenia * Most likely 2/2 hepatic disease * Plt 56--> now 62 Substance Abuse * Carries a hx/o ETOH and Marijuana Use/Dependence * Still drinks ETOH despite awareness his liver disease was due to alcoholism * UDS pos for THC * He wants to get better * Counseled on illicit drug use * SA/Tele-psych consult Laceration to RLE, Stable * 3-4" * Mildly increased warmth and edema to the lower leg * No purulent discharge from wound * PT for wound care Medical Non-Compliance - Missed or cancelled multiple appointment with GI in [place] Resolved: S/p Elevated Troponin * 05/25 --> 0.125, 0.118, 0.117; 05/26 --> 0.119--> 0.108--> 0.114 * CKMB negative * Lexiscan negative * Myocardial Perfusion Scan Nuc Med: * 1. Diminished activity within the inferior wall as noted above most likely due to diaphragmatic artifact or less likely previous infarct. * 2. Left ventricular cavity appears somewhat enlarged. * 3. No findings of reversible ischemia are seen. * Likely due to renal insufficiency S/p Altered Mental Status * Poor historian, seems confused/has difficulty when asked questions * Ammonia 32 - no hepatic encephalopathy * Drug screen presumptive positive for marijuana; all others negative * Likely due to elevated bilirubin S/p Elevated D-Dimer 2/2 Chronic Liver Disease (He is Hyperfibrinolytic state) * 4.03 on admission * Hospitalized in January 2018 in [place] with D-Dimer elevated but negative PE on chest CT scan. * Angiogram--> no acute abnormal findings; no obvious filling defect * Venous doppler LE --> negative for DVT bilaterally * Mild edema in lower extremities * Hold Lovenox/ASA d/t thrombocytopenia - Eliquis for DVT prophylaxis S/p SOB and Cough * Hospitalized in January 2018 for similar presentation of shortness of breath and dyspnea with benign work up in [place] * Mycoplasma and Strep pneumoniae Antigens were both negative * CXR: no acute findings * Repeat CXR: no acute findings * Afebrile, nonproductive * O2 98% on RA Chronic: HTN HLD * Lipid panel WNL CHF, EF 63% * 2+ pitting edema of R leg only * SOB, orthopnea * BNP 253 * Takes Lasix at home--> continue * ECHO done today H/o Prostate CA * PSA <0.1 Hx/o DVT/Thrombosis * He is not on anticoagulation due to chronic alcoholism (recommendation from Dr. Springer, Melting Supervisor in [facility] when he was hospitalized in [place] back in January) * He is high risk for DVT; will anti-coagulate him but not after discharge until his alcoholism is completely under control Plan: He is clinically stable Continue current treatment Discontinue IVF Routine AM labs PT/INR in AM DVT Prophylaxis: Eliquis (Liver Cirrhosis patient are in hypercoagulable state) GI Prophylaxis: Protonix Ambulate ad antwon Other orders as indicated above Code Status: Full code; sister is POA PCP: Unknown, states "I see everyone" at [facility] in [place]; need to establish local PCP Spoke to his sister via phone. Updated her about his test results and clinical progress. LOS anticipate > 96 hrs pending chemical rehab placement D/C Summary: Rafael did well here after being admitted for SOB, AMS, elevated Troponin and D- Dimer. He had an extensive cardiac and DVT workup while here which turned out to be negative for both MS or DVT/PE. PNA workup was negative. Hepatitis panel was negative. It was found that his AMS was d/t multiple factors, including Hyperbilirubinemia (most likely d/t cirrhosis 2/2 alcohol abuse) and his drug screen was positive for marijuana. He was treated for Hyperbilirubinemia with Prednisone and Ursodiol. He was seen by Substance abuse counselor and Telepsych for substance abuse issues. He stated he wants help while he was here and has decided to continue seeing Substance abuse as an outpt and "may have a connection at a clinic in [place]". Due to his hypercoagulable state, he was put on DVT prophylaxis of Eliquis while here. However, continuing anticoagulation is cautioned after D/C due to his hx/o chronic alcohol use/ dependence. Pt will be sent home with new prescriptions for Lovenox 120 mg BID #60 syringe, Multivitamin #30 tablet, predniSONE 40 mg #10 tablet, Spironolactone 25 mg PO BID #60 tablet, Thiamine 100 mg PO #30 tablet, Ursodiol 300 mg PO #30 capsule. It is recommended he follow up with his PCP in 1 week for repeat CBC, Mg, PT/ INR and CMP. Also recommend f/u appointment with substance abuse counselor Del[facility] Colon outpatient as scheduled. Recommend GI visit for follow up appointment after discharge. Also recommended to absolutely avoid alcohol at this point. - Patient Instructions Diet: Heart Healthy Diet Activity: As Tolerated Driving: Do Not Drive Showering/Bathing: May Shower Other/Special Instructions: - Please take all new medications as directed. - Resume all home medications and routine home activities as tolerated. - Recommend follow up CBC, Mg, PT/INR and CMP in 1 week through your PCP's office. - Make sure keep appointment with Delonte Colon outpatient as scheduled. - Absolutely avoid alcohol at this point! - Recommend GI visit for follow up appointment after discharge. - Call or follow up with your PCP for any questions or concerns after discharge. - Follow up with your PCP in 1 week with repeat labs. - Come back or seek immediate care should your symptoms persist or get worse - Discharge Plan *PRESCRIPTION DRUG MONITORING PROGRAM REVIEWED*: Not Applicable *COPY OF PRESCRIPTION DRUG MONITORING REPORT IN PATIENT ELODIA: Not Applicable Prescriptions/Med Rec: Enoxaparin [Lovenox] 120 mg SQ BID #60 syringe Multivitamin [Multi-Day Vitamins] 1 each PO ASDIRECTED #30 tablet predniSONE 40 mg PO WITHBREAKFAST #10 tablet Spironolactone [Aldactone] 25 mg PO BID #60 tablet Thiamine [Vitamin B-1] 100 mg PO BEDTIME #30 tablet Ursodiol 300 mg PO DAILY #30 capsule Home Medications: Home Meds Lisinopril 10 mg PO DAILY 05/25/18 [History] atorvaSTATin [Lipitor] 20 mg PO BEDTIME 05/25/18 [History] Enoxaparin [Lovenox] 120 mg SQ BID #60 syringe 05/28/18 [Rx] Folic Acid 1 mg PO DAILY #30 tablet 05/28/18 [Rx] Furosemide 20 mg PO ASDIRECTED #120 05/28/18 [Rx] Multivitamin [Multi-Day Vitamins] 1 each PO ASDIRECTED #30 tablet 05/28/18 [Rx] Spironolactone [Aldactone] 25 mg PO BID #60 tablet 05/28/18 [Rx] Thiamine [Vitamin B-1] 100 mg PO BEDTIME #30 tablet 05/28/18 [Rx] Ursodiol 300 mg PO DAILY #30 capsule 05/28/18 [Rx] predniSONE 40 mg PO WITHBREAKFAST #10 tablet 05/28/18 [Rx] Patient Handouts: Alcoholic Liver Disease, Cannabis Use Disorder, Jaundice, Adult, Hepatic Encephalopathy, Hepatomegaly, [id number], Cirrhosis, Substance Use Disorder, Nonsutured Laceration Care, Steps to Quit Smoking [facility]errals: [facility] [Order[facility] Only [facility]] - - Discharge Summary/Plan Comment DC Time >30 min.: Yes (45) - General Info Date of Service: 05/28/18 Admission Dx/Problem (Free Text: Admission Diagnosis/Problem Admission Diagnosis/Problem Chest pain Subjective Update: In to see Rafael. He is sitting in chair getting ready to go home. He is overall feeling "much better" and he seems to be more alert and oriented. He has no complaints at this time and is ready to go home. He states he understands the discharge information and has no questions for me at this time. No concerns from nursing. He will be D/C'd home with a friend today, as his sister is dealing with a family emergency and can no longer pick him up. Functional Status: Reports: Pain Controlled, Tolerating Diet, Ambulating, Urinating - Review of Systems General: Reports: No Symptoms. Denies: Fever, Chills HEENT: Reports: No Symptoms Pulmonary: Reports: No Symptoms. Denies: Shortness of Breath, Cough, Wheezing Cardiovascular: Reports: No Symptoms. Denies: Chest Pain, Dyspnea on Exertion Gastrointestinal: Reports: No Symptoms. Denies: Abdominal Pain, Diarrhea, Nausea, Vomiting Genitourinary: Reports: No Symptoms Musculoskeletal: Reports: No Symptoms Skin: Reports: No Symptoms, Other (healing laceration on right calf) Neurological: Reports: No Symptoms Psychiatric: Reports: No Symptoms - Patient Data Vitals - Most Recent: Last Vital Signs Temp 98.1 F 05/28/18 13:11 Pulse 71 05/28/18 13:11 Resp 18 05/28/18 13:11 BP 138/80 05/28/18 13:11 Pulse Ox 95 05/28/18 13:11 Weight - Most Recent: 265 lb 9 oz I&O - Last 24 hours: Intake & Output 05/28/18 05/28/18 05/28/18 06:59 14:59 22:59 Intake Total 300 240 Balance 300 240 Lab Results - Last 24 hrs: Laboratory Results - last 24 hr 05/26/18 05/28/18 05/28/18 Range/Units 09:43 06:15 06:15 WBC 6.21 (4.23-9.07) K/mm3 RBC 3.68 L (4.63-6.08) M/mm3 Hgb 13.2 L (13.7-17.5) gm/L Hct 38.8 L (40.1-51.0) % MCV 105.4 H (79.0-92.2) fl MCH 35.9 H (25.7-32.2) pg MCHC 34.0 (32.2-35.5) g/dl RDW Std Deviation 59.7 H (35.1-43.9) fL Plt Count 70 L (163-337) K/mm3 MPV 9.7 (9.4-12.3) fl Neut % (Auto) 62.7 (34.0-67.9) % Lymph % (Auto) 21.6 L (21.8-53.1) % Hitchcock % (Auto) 13.2 H (5.3-12.2) % Eos % (Auto) 1.3 (0.8-7.0) Baso % (Auto) 1.0 (0.1-1.2) % Neut # (Auto) 3.90 (1.78-5.38) K/mm3 Lymph # (Auto) 1.34 (1.32-3.57) K/mm3 Hitchcock # (Auto) 0.82 (0.30-0.82) K/mm3 Eos # (Auto) 0.08 (0.04-0.54) K/mm3 Baso # (Auto) 0.06 (0.01-0.08) K/mm3 Manual Slide Review Abnormal smear PT (9.5-12.1) SECONDS INR Sodium 135 L (136-145) mEq/L Potassium 3.5 (3.5-5.1) mEq/L Chloride 104 (98-107) mEq/L Carbon Dioxide 22 (21-32) mEq/L Anion Gap 12.5 (5-15) BUN 7 (7-18) mg/dL Creatinine 0.8 (0.7-1.3) mg/dL Est Cr Clr Drug Dosing 105.19 mL/min Estimated GFR (MDRD) > 60 (>60) mL/min BUN/Creatinine Ratio 8.8 L (14-18) Glucose 87 (74-106) mg/dL Calcium 8.3 L (8.5-10.1) mg/dL Magnesium 1.9 (1.8-2.4) mg/dl Total Bilirubin 4.5 H (0.2-1.0) mg/dL AST 54 H (15-37) U/L ALT 24 (16-63) U/L Alkaline Phosphatase 116 (46-116) U/L C-Reactive Protein < 0.2 (<1.0) mg/dL Total Protein 7.2 (6.4-8.2) g/dl Albumin 2.6 L (3.4-5.0) g/dl Globulin 4.6 gm/dL Albumin/Globulin Ratio 0.6 L (1-2) Hepatitis A IgM Ab Negative (Negative) Hep Bs Antigen Negative (Negative) Hep B Core IgM Ab Negative (Negative) Hepatitis C Antibody <0.1 (0.0-0.9) s/co ratio 05/28/18 Range/Units 06:15 WBC (4.23-9.07) K/mm3 RBC (4.63-6.08) M/mm3 Hgb (13.7-17.5) gm/L Hct (40.1-51.0) % MCV (79.0-92.2) fl MCH (25.7-32.2) pg MCHC (32.2-35.5) g/dl RDW Std Deviation (35.1-43.9) fL Plt Count (163-337) K/mm3 MPV (9.4-12.3) fl Neut % (Auto) (34.0-67.9) % Lymph % (Auto) (21.8-53.1) % Hitchcock % (Auto) (5.3-12.2) % Eos % (Auto) (0.8-7.0) Baso % (Auto) (0.1-1.2) % Neut # (Auto) (1.78-5.38) K/mm3 Lymph # (Auto) (1.32-3.57) K/mm3 Hitchcock # (Auto) (0.30-0.82) K/mm3 Eos # (Auto) (0.04-0.54) K/mm3 Baso # (Auto) (0.01-0.08) K/mm3 Manual Slide Review PT 15.7 H (9.5-12.1) SECONDS INR 1.45 Sodium (136-145) mEq/L Potassium (3.5-5.1) mEq/L Chloride (98-107) mEq/L Carbon Dioxide (21-32) mEq/L Anion Gap (5-15) BUN (7-18) mg/dL Creatinine (0.7-1.3) mg/dL Est Cr Clr Drug Dosing mL/min Estimated GFR (MDRD) (>60) mL/min BUN/Creatinine Ratio (14-18) Glucose (74-106) mg/dL Calcium (8.5-10.1) mg/dL Magnesium (1.8-2.4) mg/dl Total Bilirubin (0.2-1.0) mg/dL AST (15-37) U/L ALT (16-63) U/L Alkaline Phosphatase (46-116) U/L C-Reactive Protein (<1.0) mg/dL Total Protein (6.4-8.2) g/dl Albumin (3.4-5.0) g/dl Globulin gm/dL Albumin/Globulin Ratio (1-2) Hepatitis A IgM Ab (Negative) Hep Bs Antigen (Negative) Hep B Core IgM Ab (Negative) Hepatitis C Antibody (0.0-0.9) s/co ratio Med Orders - Current: Current Medications Acetaminophen (Tylenol) 650 mg PO Q4H PRN PRN Reason: Pain (Mild 1-3)/fever Apixaban (Eliquis) 2.5 mg PO BID [facility] Last Admin: 05/28/18 09:12 Dose: 2.5 mg Folic Acid (Folic Acid) 1 mg PO DAILY [facility] Last Admin: 05/28/18 09:13 Dose: 1 mg Furosemide (Lasix) 40 mg PO DAILY [facility] Last Admin: 05/28/18 09:13 Dose: 40 mg Hydralazine HCl (Apresoline) 20 mg IVPUSH Q4H PRN PRN Reason: Hypertension Lisinopril (Prinivil) 10 mg PO DAILY [facility] Last Admin: 05/28/18 09:14 Dose: 10 mg Lorazepam (Ativan) 2 mg IVPUSH Q4H PRN PRN Reason: Seizures Magnesium Sulfate (Pharmacy To Dose - Magnesium Replacement) 1 dose .XX ASDIRECTED [facility] Metoprolol Tartrate (Lopressor) 5 mg IVPUSH Q4H PRN PRN Reason: Tachycardia Multivitamins (Thera) 1 each PO BEDTIME [facility] Last Admin: 05/27/18 20:17 Dose: 1 each Atorvastatin 20 Mg (TabOwn Med) 20 mg PO BEDTIME [facility] Last Admin: 05/27/18 20:18 Dose: 20 mg Ondansetron HCl (Zofran) 4 mg IVPUSH Q4H PRN PRN Reason: Nausea/Vomiting Potassium Chloride (Pharmacy To Dose - Potassium Replacement) 1 dose .XX ASDIRECTED [facility] Prednisone (Prednisone) 40 mg PO WITHBREAKFAST [facility] Last Admin: 05/28/18 06:33 Dose: 40 mg Sodium Chloride (Saline Flush) 10 ml FLUSH ASDIRECTED PRN PRN Reason: Keep Vein Open Last Admin: 05/25/18 12:34 Dose: 10 ml Spironolactone (Aldactone) 25 mg PO BID [facility] Last Admin: 05/28/18 09:11 Dose: 25 mg Thiamine HCl (Vitamin B-1) 100 mg PO BEDTIME [facility] Last Admin: 05/27/18 20:17 Dose: 100 mg Ursodiol (Candelaria 250) 250 mg PO BID [facility] Last Admin: 05/28/18 09:15 Dose: 250 mg Discontinued Medications Aspirin (Aspirin) 324 mg PO ONETIME ONE Stop: 05/25/18 10:54 Last Admin: 05/25/18 12:34 Dose: Not Given Aspirin (Aspirin) 324 mg PO ONETIME ONE Stop: 05/25/18 14:05 Last Admin: 05/25/18 14:50 Dose: 324 mg Diphenhydramine HCl (Benadryl) 50 mg IVPUSH ONETIME ONE Stop: 05/25/18 15:59 Last Admin: 05/25/18 16:43 Dose: Not Given Enoxaparin Sodium (Lovenox) 120 mg SUBCUT ONETIME ONE Stop: 05/25/18 20:35 Last Admin: 05/25/18 21:42 Dose: Not Given Furosemide (Lasix) 20 mg PO DAILY [facility] Last Admin: 05/26/18 10:15 Dose: 20 mg Haloperidol Lactate (Haldol) 5 mg IM ONETIME ONE Stop: 05/25/18 15:59 Last Admin: 05/25/18 16:43 Dose: Not Given Hydromorphone HCl (Dilaudid) 0.5 mg IVPUSH ONETIME ONE Stop: 05/25/18 15:59 Last Admin: 05/25/18 16:43 Dose: Not Given Sodium Chloride (Normal Saline) 100 mls @ 60 mls/hr IV ASDIRECTED MARK Last Admin: 05/25/18 13:54 Dose: 60 mls/hr Sodium Chloride (Normal Saline) 1,000 mls @ 100 mls/hr IV ASDIRECTED MARK Sodium Chloride (Normal Saline) 1,000 mls @ 125 mls/hr IV ASDIRECTED MARK Last Admin: 05/27/18 12:16 Dose: 125 mls/hr Iopamidol (Isovue-370 (76%)) 100 ml IVPUSH ONETIME ONE Stop: 05/25/18 13:40 Last Admin: 05/25/18 13:53 Dose: 100 ml Iopamidol (Isovue-370 (76%)) 100 ml IVPUSH ONETIME ONE Stop: 05/25/18 13:43 Last Admin: 05/25/18 15:27 Dose: Not Given Iopamidol (Isovue-300 (61%)) 125 ml IVPUSH ONETIME ONE Stop: 05/25/18 17:13 Last Admin: 05/25/18 17:26 Dose: 150 ml Morphine Sulfate (Morphine) 2 mg IVPUSH Q2H PRN PRN Reason: Pain (severe 7-10) Stop: 05/26/18 20:16 Last Admin: 05/26/18 04:00 Dose: 2 mg Ursodiol 250 Mg Tab 0 each PO BEDTIME [facility] Last Admin: 05/26/18 20:36 Dose: 1 each Phytonadione (Aquamephyton) 10 mg SUBCUT DAILY [facility] Stop: 05/28/18 09:01 Last Admin: 05/28/18 09:25 Dose: 10 mg Regadenoson (Lexiscan) 0.4 mg IVPUSH ONETIME ONE Stop: 05/26/18 06:50 Last Admin: 05/26/18 07:49 Dose: 0.4 mg Sodium Chloride (Saline Flush) 10 ml FLUSH ONETIME ONE Stop: 05/25/18 13:40 Last Admin: 05/25/18 13:54 Dose: 10 ml - Exam Quality Assessment: Reports: DVT Prophylaxis. Denies: Supplemental Oxygen General: Reports: Alert, Oriented, Cooperative, No Acute Distress HEENT: Reports: Pupils Equal, Pupils Reactive, EOMI, Mucous Membr. Moist/[place]: Reports: Supple Lungs: Reports: Clear to Auscultation, Normal Respiratory Effort Cardiovascular: Reports: Regular Rate, Regular Rhythm GI/Abdominal Exam: Normal Bowel Sounds, Soft, Non-Tender, No Organomegaly, No Distention, No Abnormal Bruit, No Mass, Pelvis Stable (Male) Exam: Deferred Rectal (Males) Exam: Deferred Back Exam: Reports: Normal Inspection, Full Range of Motion Extremities: Normal Inspection, Normal Range of Motion, Non-Tender, No Pedal Edema, Normal Capillary Refill Skin: Reports: Warm, Dry, Intact Wound/Incisions: Reports: Healing Well, No Drainage Neurological: Reports: No New Focal Deficit Psy/Mental Status: Reports: Alert, Normal Affect, Normal Mood
== END 2018-05-28 17:52 | disposition home or self-care (01) ==
LOC: JD.ED 09:32 → JD.MS 19:01
PROVIDERS: ADMIT Internal Medicine Cardiovascular Disease; ATTEND Internal Medicine Cardiovascular Disease
DX: K70.40 Alcoholic hepatic failure without coma (principal); I13.0 Hypertensive heart and chronic kidney disease with heart failure and stage 1 through stage 4 chronic kidney disease, or unspecified chronic kidney disease; N18.9 Chronic kidney disease, unspecified; I50.9 Heart failure, unspecified; S81.811A Laceration without foreign body, right lower leg, initial encounter; D69.6 Thrombocytopenia, unspecified; E78.5 Hyperlipidemia, unspecified; Z85.46 Personal history of malignant neoplasm of prostate; Z86.711 Personal history of pulmonary embolism; Z79.899 Other long term (current) drug therapy; F10.20 Alcohol dependence, uncomplicated; F10.239 Alcohol dependence with withdrawal, unspecified; F17.200 Nicotine dependence, unspecified, uncomplicated; F12.20 Cannabis dependence, uncomplicated
CPT/HCPCS: 36415; 71046; 71275; 74177; 76700; 78452; 80053; 80061; 80074; 80306; 81001; 82140; 82248; 82553; 83690; 83735; 83880; 84443; 84484; 85007; 85025; 85027; 85379; 85610; 85730; 86140; 86738; 87899; 93005; 93017; 93306; 93970; 96361; 96374; 97161; 97530; 97535; 99285; A9270; A9500; G0103; G0378; G0480; J2270; J2785; J3430; J7030; J7040; J7050; Q9967; 93010